=== PATIENT | male | born 1980 | race Caucasian/White ===

== ENCOUNTER 2023-04-29 21:15 | Inpatient (IN) ==
[2023-04-29] MEDS ORDERED: VANCOMYCIN CONSULT ACTIVE PRN (22:06)
[2023-04-29] MEDS ORDERED: VANCOMYCIN HCL 2,250 MG in SODIUM CHLORIDE 0.9% 500 ML IV ONE (22:06)
[2023-04-29] MEDS ORDERED: SODIUM CHLORIDE 0.9% 1,000 ML IV ONE (22:06)
[2023-04-29] MEDS ORDERED: CIPROFLOXACIN / D5W 400 MG/200 ML BAG IV STA (22:07)
[2023-04-29] MEDS ORDERED: metroNIDAZOLE 500 MG/100 ML BAG IV STA (22:07)
--- NOTE | 2023-04-29 23:27 | XRay Report ---
SINGLE VIEW CHEST CLINICAL HISTORY: Sepsis. Recent heart surgery. FINDINGS: An AP, portable, upright chest radiograph is obtained. No prior studies are available for c omparison at the time of dictation. The patient is status post midline sternotomy. The heart is enlar ged. The pulmonary vasculature is noncongested. There are right larger than left pleural effusions wi th dependent atelectasis. No pneumothorax is seen. The bony thorax is grossly intact. IMPRESSION: 1. Cardiomegaly without radiographic evidence of congestive failure. 2. Right larger than left pleural effusions with dependent atelectasis. ACT 112: Negative or not required by law. Electronically signed by: Ayan Saxena M.D. 04/29/2023 11:26 PM
[2023-04-29 23:40] LABS: Basophils # (auto) 0.01 K/uL (0.00-0.20); Basophils % (auto) 0.3 %; Eosinophils # (auto) 0.29 K/uL (0.00-0.50); Eosinophils % (auto) 8.5 %; Hematocrit (blood only) 52.7 % (42.0-52.0); Hemoglobin 17.1 g/dl (14.0-18.0); Immature Granulocytes # (auto) 0.03 K/uL (0.01-0.20); Immature Granulocytes % (auto) 0.9 %; Lymphocytes # (auto) 0.79 K/uL (1.20-3.40); Lymphocytes % (auto) 23.2 %; Mean Corpuscular Hemoglobin 28.9 pg (25.0-34.0); Mean Corpuscular Hgb Conc 32.4 g/dL (32.0-36.0); Mean Platelet Volume 9.6 fL (9.4-12.4); Monocytes # (auto) 0.24 K/uL (0.11-0.59); Monocytes % (auto) 7.1 %; Neutrophils # (auto) 2.04 K/uL (1.40-6.50); Platelet Count 156 K/uL (130-400); RDW Coefficient of Variation 16.5 % (11.5-14.5); RDW Standard Deviation 52.7 fL (36.4-46.3); Red Blood Count 5.92 M/uL (4.70-6.10)
[2023-04-30 00:06] LABS: Alanine Aminotransferase 46 U/L (7-52); Albumin Level 3.4 gm/dl (3.4-5.0); Alkaline Phosphatase 80 U/L (34-104); Anion Gap 7 (3-11); Aspartate Aminotransferase 36 U/L (13-39); BUN Creatinine Ratio 27.6 (10-20); Bilirubin,Total 0.4 mg/dl (0.2-1.0); Blood Urea Nitrogen 21 mg/dl (6-23); Calcium 8.8 mg/dl (8.6-10.3); Carbon Dioxide 26 mmol/L (21-32); Chloride 99 mmol/L (98-107); Creatine Kinase 14 U/L (30-223); Creatinine Clr Calc Pharmacy 167.5 ml/min; Est GFR (African American) 131.3 ml/min; Est GFR (Non-African American) 113.3 ml/min; Glucose 130 mg/dl (70-99(Fasting)); Magnesium 1.9 mg/dl (1.7-2.4); Potassium 3.8 mmol/L (3.5-5.1); Sodium 132 mmol/L (136-145); Total Protein 7.1 gm/dl (6.0-8.3)
--- NOTE | 2023-04-30 00:48 | Emergency Department Note ---
History of Present Illness General Chief complaint: Illness Stated complaint: Swelling under chin s/p surgery Time Seen by Provider: 04/29/23 21:23 History of Present Illness This 42-year-old male who was hospitalized for a few months for a peritonsillar abscess that spread into his neck tissue and then ended up being intubated and trached in [place] presents to the ER for increased swelling to the left side of his neck. Patient is unsure of his medical history as he states he was in a medically induced coma for 2 months at [facility]. Patient states the other day he had a CAT scan of the neck over at [place]. He states he is highly allergic anaphylactic to IV dye and is adamantly refusing IV dye tonight. He states he is also anaphylactic to penicillins. Patient states he feels like the left side of his neck is more swollen as and difficulty swallowing and feels somewhat short of breath. He is on a DOAC. Patient denies fevers, vomiting, diarrhea. He states his arms and legs have been weak since coming out of the coma. Past Med/Surg History Social History Smoking Status: Former smoker Feels Safe at Home: Yes Review of Systems A total of 10 systems reviewed and were otherwise negative Physical Exam Vital Signs Vital Signs - 24 hr 04/29/23 21:15 04/29/23 21:26 04/29/23 21:25 Temperature 36.4 C L Temperature Source Oral Pulse Rate 98 H 94 H Pulse Rate [Left Finger] Pulse Rate from SpO2 Sensor Pulse Rhythm Regular Regular Pulse Rhythm [Left Finger] Pulse Strength Normal Pulse Strength [Left Finger] Respiratory Rate 20 Respiratory Effort / Characteristics Non-Labored Spontaneous Respiratory Depth Normal Respiratory Pattern Regular Blood Pressure 98/68 L Blood Pressure [Left Arm] Blood Pressure Mean 78 Blood Pressure Mean [Left Arm] Blood Pressure Position Lying Pulse Oximetry 95 95 Oxygen Delivery Method Room Air Room Air Sepsis Recent Fever Within 48 Hours No Sepsis New/Unexplained Change in Mental Status N/A Sepsis Action Taken by Nursing No Action Required 04/29/23 23:06 04/30/23 01:28 04/29/23 21:26 Temperature Temperature Source Pulse Rate 90 94 H Pulse Rate [Left Finger] 92 H Pulse Rate from SpO2 Sensor 95 H Pulse Rhythm Pulse Rhythm [Left Finger] Regular Pulse Strength Pulse Strength [Left Finger] Normal Respiratory Rate 22 17 Respiratory Effort / Characteristics Non-Labored Spontaneous Respiratory Depth Normal Respiratory Pattern Regular Blood Pressure Blood Pressure [Left Arm] 115/71 Blood Pressure Mean Blood Pressure Mean [Left Arm] 85 Blood Pressure Position Pulse Oximetry 96 97 Oxygen Delivery Method Room Air Sepsis Recent Fever Within 48 Hours Sepsis New/Unexplained Change in Mental Status Sepsis Action Taken by Nursing 04/29/23 21:30 04/29/23 22:00 04/29/23 22:30 Temperature Temperature Source Pulse Rate 96 H 92 H 90 Pulse Rate [Left Finger] Pulse Rate from SpO2 Sensor 96 H Pulse Rhythm Pulse Rhythm [Left Finger] Pulse Strength Pulse Strength [Left Finger] Respiratory Rate 20 15 18 Respiratory Effort / Characteristics Respiratory Depth Respiratory Pattern Blood Pressure 118/61 Blood Pressure [Left Arm] Blood Pressure Mean 80 Blood Pressure Mean [Left Arm] Blood Pressure Position Pulse Oximetry 97 Oxygen Delivery Method Sepsis Recent Fever Within 48 Hours Sepsis New/Unexplained Change in Mental Status Sepsis Action Taken by Nursing 04/29/23 23:00 04/29/23 23:00 04/29/23 23:30 Temperature Temperature Source Pulse Rate 89 Pulse Rate [Left Finger] Pulse Rate from SpO2 Sensor Pulse Rhythm Pulse Rhythm [Left Finger] Pulse Strength Pulse Strength [Left Finger] Respiratory Rate 15 Respiratory Effort / Characteristics Respiratory Depth Respiratory Pattern Blood Pressure 115/71 107/66 Blood Pressure [Left Arm] Blood Pressure Mean 77 79 Blood Pressure Mean [Left Arm] Blood Pressure Position Pulse Oximetry Oxygen Delivery Method Sepsis Recent Fever Within 48 Hours Sepsis New/Unexplained Change in Mental Status Sepsis Action Taken by Nursing 04/29/23 23:30 04/30/23 00:25 04/30/23 00:30 Temperature Temperature Source Pulse Rate 85 88 87 Pulse Rate [Left Finger] Pulse Rate from SpO2 Sensor 88 87 Pulse Rhythm Pulse Rhythm [Left Finger] Pulse Strength Pulse Strength [Left Finger] Respiratory Rate 20 17 19 Respiratory Effort / Characteristics Respiratory Depth Respiratory Pattern Blood Pressure 93/62 L Blood Pressure [Left Arm] Blood Pressure Mean 72 Blood Pressure Mean [Left Arm] Blood Pressure Position Pulse Oximetry 97 96 Oxygen Delivery Method Sepsis Recent Fever Within 48 Hours Sepsis New/Unexplained Change in Mental Status Sepsis Action Taken by Nursing 04/30/23 01:00 04/30/23 01:00 Temperature Temperature Source Pulse Rate 88 Pulse Rate [Left Finger] Pulse Rate from SpO2 Sensor 88 Pulse Rhythm Pulse Rhythm [Left Finger] Pulse Strength Pulse Strength [Left Finger] Respiratory Rate 19 Respiratory Effort / Characteristics Respiratory Depth Respiratory Pattern Blood Pressure 105/63 Blood Pressure [Left Arm] Blood Pressure Mean 78 Blood Pressure Mean [Left Arm] Blood Pressure Position Pulse Oximetry 95 Oxygen Delivery Method Sepsis Recent Fever Within 48 Hours Sepsis New/Unexplained Change in Mental Status Sepsis Action Taken by Nursing VITALS: Vitals are noted on the nurse's note and reviewed by myself. Vital signs stable. GENERAL: Pleasant gentleman speaking in full sentences, in no acute distress, nondiaphoretic, well-developed well-nourished. SKIN: Midsternal wound that is packed with no signs of secondary infection, the skin was without rashes, erythema, edema, or bruising. There is no tenting of the skin. Capillary reflex less than 2 seconds. HEAD: Normocephalic atraumatic. EARS: External auditory canals clear, EYES: Pupils equal round and reactive to light and accommodation. Conjunctivae without injection, sclerae without icterus. Extraocular movements intact. NOSE: Patent, turbinates without inflammation or discharge. No sinus tenderness. MOUTH: Mucous membranes moist. Pharynx without erythema or exudate. Uvula midline. Airway patent. Tongue does not deviate. NECK: Supple without nuchal rigidity. Left lateral neck slightly edematous and tender to palpation with reactive lymphadenopathy. Cervical spine is nontender. No JVD. HEART: Regular rate and rhythm; chest with midsternal healing open wound that is packed. LUNGS: Clear to auscultation bilaterally without wheezes, rales or rhonchi. No retractions or accessory muscle use. ABDOMEN: Positive bowel sounds x 4. Normal tympanic percussion. Soft, nontender, without masses or organomegaly. Del Valle sign negative. No guarding or rebound tenderness. No CVA tenderness MUSCULOSKELETAL: No muscle atrophy, erythema, or edema noted. NEURO: Patient was alert and oriented to person place and time. No focal neurological deficits. Course Administered Medications Discontinued Medications Albuterol (Albut/Ipratrop 3mg/0.5mg Neb 3 Ml Vial) 3 ml NEB NOW STA; Protocol Stop: 04/30/23 02:30 Last Admin: 04/30/23 02:50 Dose: 3 ml Documented By: RYAN Sodium Chloride (Nss) 1,000 mls @ 999 mls/hr IV .Q1H1M ONE Stop: 04/29/23 23:06 Last Infusion: 04/30/23 01:00 Dose: 0 mls/hr Documented By: Admin: 04/29/23 23:10 Dose: 999 mls/hr Documented By: IGNACIO Ciprofloxacin (Cipro / D5w) 400 mg in 200 mls @ 100 mls/hr IV NOW STA; Protocol Stop: 04/30/23 00:06 Last Admin: 04/30/23 01:00 Dose: 100 mls/hr Documented By: RYAN Metronidazole (Flagyl) 500 mg in 100 mls @ 100 mls/hr IV NOW STA; Protocol Stop: 04/29/23 23:06 Last Infusion: 04/30/23 01:00 Dose: 0 mls/hr Documented By: Admin: 04/29/23 23:11 Dose: 100 mls/hr Documented By: IGNACIO Medical Decision Making Medical Records Attestation: I reviewed the patient's medical records. Home Medications Current Medication List: was personally reviewed by me Laboratory Data Attestation: I reviewed the patient's lab results. 04/29/23 22:59 04/29/23 22:52 Lab Results 04/29/23 04/29/23 04/29/23 Range/Units 22:52 22:52 22:52 WBC Cancelled RBC Cancelled Hgb Cancelled Hct Cancelled MCV Cancelled MCH Cancelled MCHC Cancelled RDW Std Deviation Cancelled RDW Coeff of Reed Cancelled Plt Count Cancelled MPV Cancelled Immature Gran % (Auto) Cancelled Neut % (Auto) Cancelled Lymph % (Auto) Cancelled [place] % (Auto) Cancelled Eos % (Auto) Cancelled Baso % (Auto) Cancelled Neut # (Auto) Cancelled Lymph # (Auto) Cancelled [place] # (Auto) Cancelled Eos # (Auto) Cancelled Baso # (Auto) Cancelled Immature Gran # (Auto) Cancelled Absolute Nucleated RBC Cancelled Nucleated RBC % (auto) Cancelled Neutrophils % (Manual) Cancelled Band Neutrophils % Cancelled Lymphocytes % (Manual) Cancelled Prolymphocyte % Cancelled Reactive Lymphs % (Man) Cancelled Monocytes % (Manual) Cancelled Eosinophils % (Manual) Cancelled Basophils % (Manual) Cancelled Metamyelocytes % (Man) Cancelled Myelocytes % (Man) Cancelled Promyelocytes % (Man) Cancelled Blast Cells % (Manual) Cancelled Plasma Cell % (Manual) Cancelled Other Cells % Cancelled Nucleated RBC % Cancelled Neutrophils # (Manual) Cancelled Band Neutrophils # Cancelled Total Absolute Neuts Cancelled Lymphocytes # (Manual) Cancelled Prolymphocyte # Cancelled Reactive Lymphs # Cancelled Total Abs Lymphocytes Cancelled Monocytes # (Manual) Cancelled Eosinophils # (Manual) Cancelled Basophils # (Manual) Cancelled Metamyelocytes # (Man) Cancelled Myelocytes # (Manual) Cancelled Promyelocytes # (Man) Cancelled Blast Cells # (Man) Cancelled Plasma Cell # (Manual) Cancelled Other Cells # Cancelled Nucleated RBCs # (Man) Cancelled Hypersegmented Neuts Cancelled Hyposegmented Neuts Cancelled Hypogranular Neuts Cancelled Large Granular Lymphs Cancelled # Lrg Granular Lymphs Cancelled Hairy Cells Cancelled Smudge Cells Cancelled Toxic Granulation Cancelled Toxic Vacuolation Cancelled Dohle Bodies Cancelled Francie Rods Cancelled Platelet Estimate Cancelled Hypogranular Platelets Cancelled Giant Platelets Cancelled Platelet Satelliting Cancelled RBC Morphology Cancelled Polychromasia Cancelled Hypochromasia Cancelled Poikilocytosis Cancelled Basophilic Stippling Cancelled Anisocytosis Cancelled Microcytosis Cancelled Macrocytosis Cancelled Spherocytes Cancelled Pappenheimer Bodies Cancelled Sickle Cells Cancelled Target Cells Cancelled Tear Drop Cells Cancelled Ovalocytes Cancelled Stomatocytes Cancelled [place] Bodies Cancelled Echinocytes Cancelled Acanthocytes (Spur) Cancelled Rouleaux Cancelled RBC Agglutinates Cancelled Schistocytes Cancelled [place] Cell Cancelled Sodium 132 L (136-145) mmol/L Potassium 3.8 (3.5-5.1) mmol/L Chloride 99 (98-107) mmol/L Carbon Dioxide 26 (21-32) mmol/L Anion Gap 7 (3-11) BUN 21 (6-23) mg/dl Creatinine 0.76 (0.6-1.4) mg/dl Est Cr Clr Drug Dosing 167.5 ml/min Est GFR ( Amer) 131.3 ml/min Est GFR (Non-Af Amer) 113.3 ml/min BUN/Creatinine Ratio 27.6 H (10-20) Glucose 130 H (70-99(Fasting)) mg/dl Lactate (0.4-2.0) mmol/L Calcium 8.8 (8.6-10.3) mg/dl Magnesium 1.9 (1.7-2.4) mg/dl Total Bilirubin 0.4 (0.2-1.0) mg/dl Direct Bilirubin TNP AST 36 (13-39) U/L ALT 46 (7-52) U/L Alkaline Phosphatase 80 (34-104) U/L Total Creatine Kinase 14 L (30-223) U/L Total Protein 7.1 (6.0-8.3) gm/dl Albumin 3.4 (3.4-5.0) gm/dl Procalcitonin 0.14 (0-0.5) ng/ml SARS-CoV-2, RNA, NAAT (NEGATIVE) Blood Parasites ID Cancelled 04/29/23 04/29/23 04/29/23 Range/Units 22:56 22:59 22:59 WBC 3.40 L RBC 5.92 Hgb 17.1 Hct 52.7 H MCV 89.0 MCH 28.9 MCHC 32.4 RDW Std Deviation 52.7 H RDW Coeff of Reed 16.5 H Plt Count 156 MPV 9.6 Immature Gran % (Auto) 0.9 Neut % (Auto) 60.0 Lymph % (Auto) 23.2 [place] % (Auto) 7.1 Eos % (Auto) 8.5 Baso % (Auto) 0.3 Neut # (Auto) 2.04 Lymph # (Auto) 0.79 L [place] # (Auto) 0.24 Eos # (Auto) 0.29 Baso # (Auto) 0.01 Immature Gran # (Auto) 0.03 Absolute Nucleated RBC Nucleated RBC % (auto) Neutrophils % (Manual) Band Neutrophils % Lymphocytes % (Manual) Prolymphocyte % Reactive Lymphs % (Man) Monocytes % (Manual) Eosinophils % (Manual) Basophils % (Manual) Metamyelocytes % (Man) Myelocytes % (Man) Promyelocytes % (Man) Blast Cells % (Manual) Plasma Cell % (Manual) Other Cells % Nucleated RBC % Neutrophils # (Manual) Band Neutrophils # Total Absolute Neuts Lymphocytes # (Manual) Prolymphocyte # Reactive Lymphs # Total Abs Lymphocytes Monocytes # (Manual) Eosinophils # (Manual) Basophils # (Manual) Metamyelocytes # (Man) Myelocytes # (Manual) Promyelocytes # (Man) Blast Cells # (Man) Plasma Cell # (Manual) Other Cells # Nucleated RBCs # (Man) Hypersegmented Neuts Hyposegmented Neuts Hypogranular Neuts Large Granular Lymphs # Lrg Granular Lymphs Hairy Cells Smudge Cells Toxic Granulation Toxic Vacuolation Dohle Bodies Francie Rods Platelet Estimate Hypogranular Platelets Giant Platelets Platelet Satelliting RBC Morphology Polychromasia Hypochromasia Poikilocytosis Basophilic Stippling Anisocytosis Microcytosis Macrocytosis Spherocytes Pappenheimer Bodies Sickle Cells Target Cells Tear Drop Cells Ovalocytes Stomatocytes [place] Bodies Echinocytes Acanthocytes (Spur) Rouleaux RBC Agglutinates Schistocytes Sezary Cell Sodium (136-145) mmol/L Potassium (3.5-5.1) mmol/L Chloride (98-107) mmol/L Carbon Dioxide (21-32) mmol/L Anion Gap (3-11) BUN (6-23) mg/dl Creatinine (0.6-1.4) mg/dl Est Cr Clr Drug Dosing ml/min Est GFR ( Amer) ml/min Est GFR (Non-Af Amer) ml/min BUN/Creatinine Ratio (10-20) Glucose (70-99(Fasting)) mg/dl Lactate 1.0 (0.4-2.0) mmol/L Calcium (8.6-10.3) mg/dl Magnesium (1.7-2.4) mg/dl Total Bilirubin (0.2-1.0) mg/dl Direct Bilirubin 0.1 AST (13-39) U/L ALT (7-52) U/L Alkaline Phosphatase (34-104) U/L Total Creatine Kinase (30-223) U/L Total Protein (6.0-8.3) gm/dl Albumin (3.4-5.0) gm/dl Procalcitonin (0-0.5) ng/ml SARS-CoV-2, RNA, NAAT (NEGATIVE) Blood Parasites ID 04/30/23 Range/Units 02:58 WBC RBC Hgb Hct MCV MCH MCHC RDW Std Deviation RDW Coeff of Reed Plt Count MPV Immature Gran % (Auto) Neut % (Auto) Lymph % (Auto) [place] % (Auto) Eos % (Auto) Baso % (Auto) Neut # (Auto) Lymph # (Auto) [place] # (Auto) Eos # (Auto) Baso # (Auto) Immature Gran # (Auto) Absolute Nucleated RBC Nucleated RBC % (auto) Neutrophils % (Manual) Band Neutrophils % Lymphocytes % (Manual) Prolymphocyte % Reactive Lymphs % (Man) Monocytes % (Manual) Eosinophils % (Manual) Basophils % (Manual) Metamyelocytes % (Man) Myelocytes % (Man) Promyelocytes % (Man) Blast Cells % (Manual) Plasma Cell % (Manual) Other Cells % Nucleated RBC % Neutrophils # (Manual) Band Neutrophils # Total Absolute Neuts Lymphocytes # (Manual) Prolymphocyte # Reactive Lymphs # Total Abs Lymphocytes Monocytes # (Manual) Eosinophils # (Manual) Basophils # (Manual) Metamyelocytes # (Man) Myelocytes # (Manual) Promyelocytes # (Man) Blast Cells # (Man) Plasma Cell # (Manual) Other Cells # Nucleated RBCs # (Man) Hypersegmented Neuts Hyposegmented Neuts Hypogranular Neuts Large Granular Lymphs # Lrg Granular Lymphs Hairy Cells Smudge Cells Toxic Granulation Toxic Vacuolation Dohle Bodies Francie Rods Platelet Estimate Hypogranular Platelets Giant Platelets Platelet Satelliting RBC Morphology Polychromasia Hypochromasia Poikilocytosis Basophilic Stippling Anisocytosis Microcytosis Macrocytosis Spherocytes Pappenheimer Bodies Sickle Cells Target Cells Tear Drop Cells Ovalocytes Stomatocytes [place] Bodies Echinocytes Acanthocytes (Spur) Rouleaux RBC Agglutinates Schistocytes Sezary Cell Sodium (136-145) mmol/L Potassium (3.5-5.1) mmol/L Chloride (98-107) mmol/L Carbon Dioxide (21-32) mmol/L Anion Gap (3-11) BUN (6-23) mg/dl Creatinine (0.6-1.4) mg/dl Est Cr Clr Drug Dosing ml/min Est GFR ( Amer) ml/min Est GFR (Non-Af Amer) ml/min BUN/Creatinine Ratio (10-20) Glucose (70-99(Fasting)) mg/dl Lactate (0.4-2.0) mmol/L Calcium (8.6-10.3) mg/dl Magnesium (1.7-2.4) mg/dl Total Bilirubin (0.2-1.0) mg/dl Direct Bilirubin AST (13-39) U/L ALT (7-52) U/L Alkaline Phosphatase (34-104) U/L Total Creatine Kinase (30-223) U/L Total Protein (6.0-8.3) gm/dl Albumin (3.4-5.0) gm/dl Procalcitonin (0-0.5) ng/ml SARS-CoV-2, RNA, NAAT NEGATIVE (NEGATIVE) Blood Parasites ID Imaging Data Attestation: I personally reviewed and interpreted this imaging study as follows: Radiologist's Impression: Cervical Spine CT 04/29/23 21:26 Exam(s): CT C SPINE EXAM: CT Cervical Spine Without Intravenous Contrast CLINICAL HISTORY: Reason for exam: Left neck swelling, hx mass and trac.. TECHNIQUE: Axial computed tomography images of the cervical spine without intravenous contrast. CTDI is 28.14 mGy and DLP is 3137.05 mGy-cm. Automated exposure control was utilized for the study. A dose lowering technique was utilized adhering to the principles of ALARA. COMPARISON: No relevant prior studies available. FINDINGS: Vertebrae: Slight straightening of the normal cervical curvature may be due to positioning or spasm. No acute fracture or subluxation is seen. Soft tissues: Chronic appearing calcification along the posterior soft tissues. Mastoid air cells: Partial opacification of the mastoid air cells bilaterally suggesting prior mastoiditis. Pleural space: Partial visualization of small right pleural effusion. DISCS/SPINAL CANAL/NEURAL FORAMINA: C2-C3: Unremarkable. No significant disc disease. No stenosis. C3-C4: Unremarkable. No significant disc disease. No stenosis. C4-C5: Unremarkable. No significant disc disease. No stenosis. C5-C6: Mild degenerative disc disease. No stenosis. C6-C7: Mild degenerative disc disease. No stenosis. C7-T1: Unremarkable. No significant disc disease. No stenosis. IMPRESSION: Slight straightening of the normal cervical curvature may be due to positioning or spasm. No acute fracture or subluxation is seen. Mild degenerative changes in the mid cervical spine. No spinal stenosis is seen. Electronically signed by: Luis Lewis MD 04/30/23 02:12 AM Chest X-Ray 04/29/23 21:26 SINGLE VIEW CHEST CLINICAL HISTORY: Sepsis. Recent heart surgery. FINDINGS: An AP, portable, upright chest radiograph is obtained. No prior studies are available for comparison at the time of dictation. The patient is status post midline sternotomy. The heart is enlarged. The pulmonary vasculature is noncongested. There are right larger than left pleural effusions with dependent atelectasis. No pneumothorax is seen. The bony thorax is grossly intact. IMPRESSION: 1. Cardiomegaly without radiographic evidence of congestive failure. 2. Right larger than left pleural effusions with dependent atelectasis. ACT 112: Negative or not required by law. Electronically signed by: Ayan Saxena M.D. 04/29/2023 11:[address] 04/29/23 21:27 Exam(s): CT CHEST Without Contrast EXAM: CT Chest Without Intravenous Contrast CLINICAL HISTORY: Reason for exam: neck/chest mass hx. TECHNIQUE: Axial computed tomography images of the chest without intravenous contrast. CTDI is 27.46 mGy and DLP is 3137.05 mGy-cm. Automated exposure control was utilized for the study. A dose lowering technique was utilized adhering to the principles of ALARA. COMPARISON: No relevant prior studies available. FINDINGS: Trachea: Previous tracheotomy. Lungs: There are mild emphysematous changes in the lungs bilaterally, greatest in the upper lobes. Small areas of linear scarring or subsegmental atelectasis are present inferiorly. Pleural space: There are loculated appearing bilateral pleural fluid collections measuring 4.5 cm thick on the right and 3.7 cm on the left with adjacent atelectasis. No pneumothorax. Heart: Unremarkable. No cardiomegaly. No significant pericardial effusion. No significant coronary artery calcifications. Bones/joints: Previous sternotomy. Mild degenerative changes in the spine. No acute fracture or subluxation is seen. Soft tissues: Unremarkable. Vasculature: The thoracic aorta is nondilated. This is a noncontrast study. Lymph nodes: Unremarkable. No enlarged lymph nodes. IMPRESSION: There are loculated appearing bilateral pleural fluid collections measuring 4.5 cm thick on the right and 3.7 cm on the left with adjacent atelectasis. Electronically signed by: Luis Lewis MD 04/30/23 02:14 AM Abdomen/Pelvis CT 04/29/23 22:06 Exam(s): CT ABDOMEN + PELVIS Without Contrast EXAM: CT Abdomen and Pelvis Without Intravenous Contrast CLINICAL HISTORY: Reason for exam: pain. TECHNIQUE: Axial computed tomography images of the abdomen and pelvis without intravenous contrast. CTDI is 28.14 mGy and DLP is 3137.05 mGy-cm. Automated exposure control was utilized for the study. A dose lowering technique was utilized adhering to the principles of ALARA. COMPARISON: No relevant prior studies available. FINDINGS: Lung bases: Unremarkable. No mass. No consolidation. ABDOMEN: Liver: The liver is mildly enlarged measuring 20 cm craniocaudad. No focal liver lesion is seen. Gallbladder and bile ducts: Unremarkable. No calcified stones. No ductal dilation. Pancreas: Unremarkable. No ductal dilation. Spleen: Unremarkable. No splenomegaly. Adrenals: Unremarkable. No mass. Kidneys and ureters: The kidneys are unremarkable. No hydronephrosis or ureterolithiasis is seen. Stomach and bowel: Unremarkable. No obstruction. No mucosal thickening. PELVIS: Appendix: The appendix is normal. Bowel loops are nondilated. No acute inflammatory changes are seen involving the bowel. Bladder: Unremarkable. No stones. Reproductive: Unremarkable as visualized. ABDOMEN and PELVIS: Intraperitoneal space: Unremarkable. No free air. No significant fluid collection. Bones/joints: Mild degenerative changes in the spine. No acute fracture or subluxation is seen. Soft tissues: Unremarkable. Vasculature: Unremarkable. No abdominal aortic aneurysm. Lymph nodes: Unremarkable. No enlarged lymph nodes. IMPRESSION: 1. The kidneys are unremarkable. No hydronephrosis or ureterolithiasis is seen. 2. The appendix is normal. Bowel loops are nondilated. No acute inflammatory changes are seen involving the bowel. Electronically signed by: Luis Lewis MD 04/30/23 02:15 AM MDM Narrative Prior records/ancillary studies reviewed and summarized above. Nursing notes reviewed. Additional history obtained from nursing. The patient's history was concerning for increasing neck swelling with dysphagia with a history of a neck abscess who needed to be trached. Differential diagnosis: Etiologies such as neck infection, metabolic, infection, hypo/hyperglycemia, electrolyte abnormalities, cardiac sources, intracerebral event, toxicologic, neurologic, as well as others were entertained. Physical examination: As above. ER treatment provided: IV Lock An order was placed for continuous cardiac monitoring. The monitor shows a rate of 60-100 with a sinus rhythm per my interpretation. Vancomycin, Cipro and Flagyl were ordered On reassessment the patient felt better. Diagnostics interpretation by me: ECG: Ordered for weakness EKG: Normal sinus, normal intervals, T wave inversions in the lateral leads, anterior and lateral leads, rate of 92. No old EKG. Impression normal sinus rhythm with T wave inversions in the anterolateral leads independently interpreted by myself I think arrhythmia is unlikely. EKG shows normal sinus rhythm with no interval abnormalities such as QT prolongation or WPW. There are no findings to suggest Brugada syndrome. Cardiac monitoring in the emergency department reveals no tachycardic or bradycardic dysrhythmia. Hypertrophic cardiomyopathy was considered but there are no clear historical elements pointing toward this. EKG is not suggestive. The QRS voltage is not extremely large and there are no suggestive Q waves. The labs Independently Interpreted by myself revealed mild hyperglycemia that DKA. Negative lactic. Blood cultures pending Imaging studies: Chest x-ray concerning for pleural effusions per my independent or potation CTs of the neck chest abdomen pelvis read by radiology and reviewed as above. Consultation: A consultation was placed with the hospitalist. The case was discussed and diagnostics were reviewed. The patient was evaluated in the ER for further treatment. Exam and history seem consistent with increased neck swelling concerning for cellulitis. Patient also has some pleural effusions. I did request the records from [place] but they were not sent. Patient was not well versed with his medical history as he was in a coma. He was not sure what happened with all his medical procedures. Labs and diagnostics are independent turbid by myself. Radiology read the CAT scans. Medicine was consulted and the case discussed. Patient be admitted to the medical service. Patient was admitted started antibiotics upon initial evaluation given his recent medical history. CAT scan showed neuro large abscess. He did have pleural effusions. No worrisome leukocytosis. Negative infection markers. By the evaluation outlined above emergent etiologies such as electrolyte abnormalities, cardiac sources, intrac erebral event, toxologic, neurologic, abnormalities blood glucose, metabolic, as well as others were deemed relatively unlikely. Dry scans were ordered as patient states he was anaphylactic to IV contrast. The pt informed about the findings as listed above. All questions were answered and pleased with the treatment. The chart was completed utilizing [employer] voice recognition software. Grammatical errors, random word insertions, pronoun errors, and incomplete sentences are an occassional consequence of this system due to software limitations, ambient noise, and hardware issues. Any formal questions or concerns about the content, text, or information contained within the body of this dictation should be directly addressed to the physician promotions assistant for clarification. Impression & Plan Cellulitis of neck, Pleural effusion on left, Pleural effusion on right Discharge Plan Visit Data Chief Complaint: Illness Stated Complaint: Swelling under chin s/p surgery ED Provider: Michael Mcgowan ED Midlevel Provider: Adelaide Arias Discharge Problem: Cellulitis of neck, Pleural effusion on left, Pleural effusion on right Patient Disposition: Admitted As Inpatient Condition: Good Forms Stand Alone Forms: [facility] Referrals Referrals: PCP,NO [Primary Care Provider] -
--- NOTE | 2023-04-30 02:13 | CT Scan Report ---
Exam(s): CT C SPINE EXAM: CT Cervical Spine Without Intravenous Contrast CLINICAL HISTORY: Reason for exam: Left neck swelling, hx mass and trac.. TECHNIQUE: Axial computed tomography images of the cervical spine without intravenous contrast. CTDI is 28.14 mGy and DLP is 3137.05 mGy-cm. Automated exposure control was utilized for the study. A dose lowering technique was utilized adhering to the principles of ALARA. COMPARISON: No relevant prior studies available. FINDINGS: Vertebrae: Slight straightening of the normal cervical curvature may be due to positioning or spasm. No acute fracture or subluxation is seen. Soft tissues: Chronic appearing calcification along the posterior soft tissues. Mastoid air cells: Partial opacification of the mastoid air cells bilaterally suggesting prior mastoiditis. Pleural space: Partial visualization of small right pleural effusion. DISCS/SPINAL CANAL/NEURAL FORAMINA: C2-C3: Unremarkable. No significant disc disease. No stenosis. C3-C4: Unremarkable. No significant disc disease. No stenosis. C4-C5: Unremarkable. No significant disc disease. No stenosis. C5-C6: Mild degenerative disc disease. No stenosis. C6-C7: Mild degenerative disc disease. No stenosis. C7-T1: Unremarkable. No significant disc disease. No stenosis. IMPRESSION: Slight straightening of the normal cervical curvature may be due to positioning or spasm. No acute fracture or subluxation is seen. Mild degenerative changes in the mid cervical spine. No spinal stenosis is seen. Electronically signed by: Luis Lewis MD 04/30/23 02:12 AM
--- NOTE | 2023-04-30 02:15 | CT Scan Report ---
Exam(s): CT CHEST Without Contrast EXAM: CT Chest Without Intravenous Contrast CLINICAL HISTORY: Reason for exam: neck/chest mass hx. TECHNIQUE: Axial computed tomography images of the chest without intravenous contrast. CTDI is 27.46 mGy and DLP is 3137.05 mGy-cm. Automated exposure control was utilized for the study. A dose lowering technique was utilized adhering to the principles of ALARA. COMPARISON: No relevant prior studies available. FINDINGS: Trachea: Previous tracheotomy. Lungs: There are mild emphysematous changes in the lungs bilaterally, greatest in the upper lobes. Small areas of linear scarring or subsegmental atelectasis are present inferiorly. Pleural space: There are loculated appearing bilateral pleural fluid collections measuring 4.5 cm thick on the right and 3.7 cm on the left with adjacent atelectasis. No pneumothorax. Heart: Unremarkable. No cardiomegaly. No significant pericardial effusion. No significant coronary artery calcifications. Bones/joints: Previous sternotomy. Mild degenerative changes in the spine. No acute fracture or subluxation is seen. Soft tissues: Unremarkable. Vasculature: The thoracic aorta is nondilated. This is a noncontrast study. Lymph nodes: Unremarkable. No enlarged lymph nodes. IMPRESSION: There are loculated appearing bilateral pleural fluid collections measuring 4.5 cm thick on the right and 3.7 cm on the left with adjacent atelectasis. Electronically signed by: Luis Lewis MD 04/30/23 02:14 AM
--- NOTE | 2023-04-30 02:16 | CT Scan Report ---
Exam(s): CT ABDOMEN + PELVIS Without Contrast EXAM: CT Abdomen and Pelvis Without Intravenous Contrast CLINICAL HISTORY: Reason for exam: pain. TECHNIQUE: Axial computed tomography images of the abdomen and pelvis without intravenous contrast. CTDI is 28.14 mGy and DLP is 3137.05 mGy-cm. Automated exposure control was utilized for the study. A dose lowering technique was utilized adhering to the principles of ALARA. COMPARISON: No relevant prior studies available. FINDINGS: Lung bases: Unremarkable. No mass. No consolidation. ABDOMEN: Liver: The liver is mildly enlarged measuring 20 cm craniocaudad. No focal liver lesion is seen. Gallbladder and bile ducts: Unremarkable. No calcified stones. No ductal dilation. Pancreas: Unremarkable. No ductal dilation. Spleen: Unremarkable. No splenomegaly. Adrenals: Unremarkable. No mass. Kidneys and ureters: The kidneys are unremarkable. No hydronephrosis or ureterolithiasis is seen. Stomach and bowel: Unremarkable. No obstruction. No mucosal thickening. PELVIS: Appendix: The appendix is normal. Bowel loops are nondilated. No acute inflammatory changes are seen involving the bowel. Bladder: Unremarkable. No stones. Reproductive: Unremarkable as visualized. ABDOMEN and PELVIS: Intraperitoneal space: Unremarkable. No free air. No significant fluid collection. Bones/joints: Mild degenerative changes in the spine. No acute fracture or subluxation is seen. Soft tissues: Unremarkable. Vasculature: Unremarkable. No abdominal aortic aneurysm. Lymph nodes: Unremarkable. No enlarged lymph nodes. IMPRESSION: 1. The kidneys are unremarkable. No hydronephrosis or ureterolithiasis is seen. 2. The appendix is normal. Bowel loops are nondilated. No acute inflammatory changes are seen involving the bowel. Electronically signed by: Luis Lewis MD 04/30/23 02:15 AM
[2023-04-30] MEDS ORDERED: ALBUT/IPRATROP 3MG/0.5MG NEB 3 ML VIAL NEB STA (02:29)
[2023-04-30] MEDS ORDERED: diphenhydrAMINE 50 MG/ML VIAL ONE (03:48)
--- NOTE | 2023-04-30 03:54 | History & Physical Report ---
Date of Service April 30, 2023 Assessment & Plan (1) Cellulitis of neck: Plan: Recurrent infection hx left peritonsillar abscess with secondary neck abscess and pleural fluid collections status post drainage Extended antibiotic course at LTAC facility possibly terminated prematurely without clearance from patient's [facility] specialist no sepsis for now HTN, BP on the lower side possible CHF as per patient, patient on the dry side PAF, patient NSR, patient not on anticoagulation anxiety/mood disorder, stable history of prolonged intubation GERD, stable on H2 beverly Hyperglycemia rule out DM past tobacco abuse GMF Vancomycin, Ertapenem for now to target ENT and pulmonary sources ENT consult Re: Recurrent left neck swelling Crucial to obtain records from recent confinement at [facility] and [facility] in [place] Will request AM provider to contact patient's [facility] specialist in a.m. for additional information/guidance regarding antibiotic regimen. (Dr. Lr, contact number [phone]). May benefit from inpatient Pulmonology evaluation for pleural fluid collections if recommendations/instructions not found from [facility] or [facility] discharge summaries. IVF, hold home diuretic and calcium channel beverly for now given borderline BP. Obtain history of regarding patient's cardiac issues from records once available as patient unable to give specific details. Check hemoglobin A1c DVT prophylaxis. Lovenox subcu Full code Patient mother requesting updates providers. Ms. Deb Cerda, contact #[phone]. Text document was generated using [employer] voice recognition software. It may contain grammatical or spelling errors. Kindly contact undersigned for clarification of any documentation item in question. History of Present Illness Chief Complaint: Left neck swelling Primary Care Provider: NO PCP History obtained from patient, family, and records. Medical history significant for HTN, possible CHF as per patient, PAF, anxiety/mood disorder, left peritonsillar abscess with secondary neck abscess and pleural fluid collections (Beta-hemolytic streptococcus, Group G) status post drainage, history of prolonged intubation, GERD, past tobacco abuse. Patient admitted at [facility] from March 03 to 2022 after transfer from [facility] for strep throat, left-sided large multilocular peritonsillar abscess. Subsequent direct laryngoscopy and incision and drainage of left peritonsillar abscess by ENT specialist at [facility]. Unable to extubate patient postop due to significant airway swelling. Subsequent swelling on the left side of the face and submental area noted. Respiratory cultures grew beta-hemolytic strep, group G. Intraoperative cultures gram-negative rods, gram-positive cocci in chains and few gram-positive rods. Soft tissue neck CT showed pansinusitis and marked progression of inflammatory infectious fluid stranding and induration of the left neck extending from the palatine tonsil to involve the floor of the mouth, left neck and left muscles of mastication with subcutaneous stranding extending into the anterior upper chest and left shoulder. ENT surgeon recommended transfer to tertiary care center need for extensive surgery and multidisciplinary approach as per documentation. Patient transferred by helicopter to [facility]. Patient confined at [facility] ([facility]) for about a month as per patient's family. Multiple procedures draining neck infection and secondary lung infection as per patient's mother. Prolonged intubation (about 40 days from time of surgery at [facility]) requiring tracheostomy for ventilation dependent respiratory failure. Patient does not recall events from surgery at [facility] and [facility] confinement. Patient supposed to have follow-up appointments w [facility] specialists as per mother. Patient discharged to [facility] in [place], [place] 2 weeks ago on extended antibiotic regimen as per [facility] specialist recommendations. Patient eventually weaned off ventilator and tube feeds at LTAC. Oral feeding started at LTAC as per patient last week. Patient antibiotics eventually discontinued at LTAC facility due to concern for hypersensitivity reaction. Patient mother does not think [facility] specialist consulted about decision to stop antibiotics by LTAC. Last antibiotic dose was a few days ago prior to transfer to local [facility] rehab facility. CT of the neck done prior to discontinuing antibiotics as per patient. Patient transferred to [facility] rehab facility yesterday. Last night, patient noted left-sided neck swelling with some discomfort similar to episode from a few months ago. No chest pain, no SOB, no cough symptoms. No sore throat symptoms. No tooth ache. No fever, no chills. Patient brought to ER for evaluation. Vancomycin, ciprofloxacin and Flagyl administered at the ER. 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 Allergies Allergy/AdvReac Type Severity Reaction Status Date / Time shellfish derived Allergy Severe Anaphylaxis Verified 04/30/23 03:59 penicillin G Allergy Unknown Unknown Verified 04/30/23 07:19 amoxicillin Allergy Unknown Verified 04/30/23 07:19 pecan nut Allergy Unknown Verified 04/30/23 07:19 peanut AdvReac Unknown Unknown Verified 04/30/23 07:19 Home Medications Medication Instructions Recorded Confirmed Type Lovenox 40 mg SC BID 04/30/23 04/30/23 History acetaminophen 650 mg tablet 650 mg PO Q4H PRN Pain 04/30/23 04/30/23 History amiodarone 200 mg PO DAILY 04/30/23 04/30/23 History aripiprazole 5 mg tablet (Abilify) 5 mg PO 2XD 04/30/23 04/30/23 History bisacodyl 10 mg rectal suppository 10 mg NM DAILY PRN Constipation 04/30/23 04/30/23 History bumetanide 1 mg PO BID 04/30/23 04/30/23 History dextrose 40 % oral gel 15 g PO DIRECTED PRN 04/30/23 04/30/23 History Hypoglycemia dextrose 50 % in water (D50W) 12.5 g IV DIRECTED PRN 04/30/23 04/30/23 History Hypoglycemia dextrose 50 % in water (D50W) 25 g IV DIRECTED PRN 04/30/23 04/30/23 History Hypoglycemia diltiazem HCl 90 mg PO QID 04/30/23 04/30/23 History docusate sodium 100 mg capsule 100 mg PO BID 04/30/23 04/30/23 History escitalopram oxalate 10 mg PO DAILY 04/30/23 04/30/23 History famotidine 20 mg tablet 20 mg PO BID 04/30/23 04/30/23 History gabapentin 100 mg capsule 100 mg PO BID 04/30/23 04/30/23 History magnesium hydroxide 2,400 mg/10 mL 2,400 mg PO DIRECTED PRN 04/30/23 04/30/23 History oral suspension (Milk Of Magnesia Constipation Concentrated) polyethylene glycol 3350 17 gram 17 g PO DAILY PRN Constipation 04/30/23 04/30/23 History oral powder packet potassium chloride 20 meq PO TID 04/30/23 04/30/23 History sennosides 8.6 mg tablet (Senokot) 8.6 mg PO DAILY PRN Constipation 04/30/23 04/30/23 History sodium phosphates 19 gram-7 118 ml NM DAILY PRN Constipation 04/30/23 04/30/23 History gram/118 mL enema (Fleet Enema) tamsulosin 0.4 mg PO DAILY 04/30/23 04/30/23 History Past Med/Surg History Medical History Atrial fibrillation Tachycardia Social History Smoking Status: Former smoker Second Hand Exposure: No; Do You Dip or Chew Tobacco: No; Tobacco Cessation Education Requested by Patient: No Hx Alcohol Use: No Hx Substance Use: No Preferred Language: Y[place] [employer] Required: No Beliefs That Will Affect Care: None Current Living Situation: Rehab Current Living Situation Comment: [facility] for a few days Other Information That Helps Us Care for You: No Feels Safe at Home: Yes Safety Concerns: Feels Safe At This Time Assistive Devices: Walker Review of Systems Review of Systems: As per HPI, all other systems reviewed and negative Physical Exam Physical Exam: GENERAL: Slightly uncomfortable, slightly anxious, obese, pleasant no respiratory distress SKIN: Normal color, warm HEENT: [place] palpebral conjunctivae, no ptosis, dry buccal mucosa, no trismus NECK : Supple, left neck swelling with minimal tenderness CHEST : Decreased breath sounds, no tenderness HEART : RRR, no obvious murmurs ABDOMEN: Some distention, nontender EXTREMITIES : No LE swelling/tenderness, no other conspicuous deformities noted NEUROLOGIC : Coherent, no facial asymmetry, no other gross focality Results & Data Results & Data Vital Signs (Past 12 Hours) Vital Signs Temp Pulse Pulse Resp BP BP Pulse Ox 04/30/23 03:00 97 H 20 125/71 96 04/30/23 01:00 88 19 95 04/30/23 01:00 105/63 04/30/23 00:30 87 19 93/62 L 96 04/30/23 00:25 88 17 97 04/29/23 23:30 85 20 04/29/23 23:30 107/66 04/29/23 23:00 89 15 04/29/23 23:00 115/71 04/29/23 22:30 90 18 04/29/23 22:00 92 H 15 04/29/23 21:30 96 H 20 118/61 97 04/29/23 21:26 94 H 17 97 04/30/23 01:28 90 04/29/23 23:06 92 H 22 115/71 96 04/29/23 21:25 94 H 04/29/23 21:26 95 04/29/23 21:15 36.4 C L 98 H 20 98/68 L 95 O2 Del Method 04/30/23 03:00 Room Air 04/30/23 01:00 04/30/23 01:00 04/30/23 00:30 04/30/23 00:25 04/29/23 23:30 04/29/23 23:30 04/29/23 23:00 04/29/23 23:00 04/29/23 22:30 04/29/23 22:00 04/29/23 21:30 04/29/23 21:26 04/30/23 01:28 04/29/23 23:06 Room Air 04/29/23 21:25 04/29/23 21:26 Room Air 04/29/23 21:15 Room Air Laboratory Results Laboratory Results WBC 3.40 K/ul (4.8-10.8) L 04/29/23 22:59 RBC 5.92 M/uL (4.70-6.10) 04/29/23 22:59 Hgb 17.1 g/dl (14.0-18.0) 04/29/23 22:59 Hct 52.7 % (42.0-52.0) H 04/29/23 22:59 MCV 89.0 fL (80.0-100.0) 04/29/23 22:59 MCH 28.9 pg (25.0-34.0) 04/29/23 22:59 MCHC 32.4 g/dL (32.0-36.0) 04/29/23 22:59 RDW Std Deviation 52.7 fL (36.4-46.3) H 04/29/23 22:59 RDW Coeff of Reed 16.5 % (11.5-14.5) H 04/29/23 22:59 Plt Count 156 K/uL (130-400) 04/29/23 22:59 MPV 9.6 fL (9.4-12.4) 04/29/23 22:59 Immature Gran % (Auto) 0.9 % 04/29/23 22:59 Neut % (Auto) 60.0 % 04/29/23 22:59 Lymph % (Auto) 23.2 % 04/29/23 22:59 Lamar % (Auto) 7.1 % 04/29/23 22:59 Eos % (Auto) 8.5 % 04/29/23 22:59 Baso % (Auto) 0.3 % 04/29/23 22:59 Neut # (Auto) 2.04 K/uL (1.40-6.50) 04/29/23 22:59 Lymph # (Auto) 0.79 K/uL (1.20-3.40) L 04/29/23 22:59 Lamar # (Auto) 0.24 K/uL (0.11-0.59) 04/29/23 22:59 Eos # (Auto) 0.29 K/uL (0.00-0.50) 04/29/23 22:59 Baso # (Auto) 0.01 K/uL (0.00-0.20) 04/29/23 22:59 Immature Gran # (Auto) 0.03 K/uL (0.01-0.20) 04/29/23 22:59 Absolute Nucleated RBC Cancelled 04/29/23 22:52 Nucleated RBC % (auto) Cancelled 04/29/23 22:52 Neutrophils % (Manual) Cancelled 04/29/23 22:52 Band Neutrophils % Cancelled 04/29/23 22:52 Lymphocytes % (Manual) Cancelled 04/29/23 22:52 Prolymphocyte % Cancelled 04/29/23 22:52 Reactive Lymphs % (Man) Cancelled 04/29/23 22:52 Monocytes % (Manual) Cancelled 04/29/23 22:52 Eosinophils % (Manual) Cancelled 04/29/23 22:52 Basophils % (Manual) Cancelled 04/29/23 22:52 Metamyelocytes % (Man) Cancelled 04/29/23 22:52 Myelocytes % (Man) Cancelled 04/29/23 22:52 Promyelocytes % (Man) Cancelled 04/29/23 22:52 Blast Cells % (Manual) Cancelled 04/29/23 22:52 Plasma Cell % (Manual) Cancelled 04/29/23 22:52 Other Cells % Cancelled 04/29/23 22:52 Nucleated RBC % Cancelled 04/29/23 22:52 Neutrophils # (Manual) Cancelled 04/29/23 22:52 Band Neutrophils # Cancelled 04/29/23 22:52 Total Absolute Neuts Cancelled 04/29/23 22:52 Lymphocytes # (Manual) Cancelled 04/29/23 22:52 Prolymphocyte # Cancelled 04/29/23 22:52 Reactive Lymphs # Cancelled 04/29/23 22:52 Total Abs Lymphocytes Cancelled 04/29/23 22:52 Monocytes # (Manual) Cancelled 04/29/23 22:52 Eosinophils # (Manual) Cancelled 04/29/23 22:52 Basophils # (Manual) Cancelled 04/29/23 22:52 Metamyelocytes # (Man) Cancelled 04/29/23 22:52 Myelocytes # (Manual) Cancelled 04/29/23 22:52 Promyelocytes # (Man) Cancelled 04/29/23 22:52 Blast Cells # (Man) Cancelled 04/29/23 22:52 Plasma Cell # (Manual) Cancelled 04/29/23 22:52 Other Cells # Cancelled 04/29/23 22:52 Nucleated RBCs # (Man) Cancelled 04/29/23 22:52 Hypersegmented Neuts Cancelled 04/29/23 22:52 Hyposegmented Neuts Cancelled 04/29/23 22:52 Hypogranular Neuts Cancelled 04/29/23 22:52 Large Granular Lymphs Cancelled 04/29/23 22:52 # Lrg Granular Lymphs Cancelled 04/29/23 22:52 Hairy Cells Cancelled 04/29/23 22:52 Smudge Cells Cancelled 04/29/23 22:52 Toxic Granulation Cancelled 04/29/23 22:52 Toxic Vacuolation Cancelled 04/29/23 22:52 Dohle Bodies Cancelled 04/29/23 22:52 Francie Rods Cancelled 04/29/23 22:52 Platelet Estimate Cancelled 04/29/23 22:52 Hypogranular Platelets Cancelled 04/29/23 22:52 Giant Platelets Cancelled 04/29/23 22:52 Platelet Satelliting Cancelled 04/29/23 22:52 RBC Morphology Cancelled 04/29/23 22:52 Polychromasia Cancelled 04/29/23 22:52 Hypochromasia Cancelled 04/29/23 22:52 Poikilocytosis Cancelled 04/29/23 22:52 Basophilic Stippling Cancelled 04/29/23 22:52 Anisocytosis Cancelled 04/29/23 22:52 Microcytosis Cancelled 04/29/23 22:52 Macrocytosis Cancelled 04/29/23 22:52 Spherocytes Cancelled 04/29/23 22:52 Pappenheimer Bodies Cancelled 04/29/23 22:52 Sickle Cells Cancelled 04/29/23 22:52 Target Cells Cancelled 04/29/23 22:52 Tear Drop Cells Cancelled 04/29/23 22:52 Ovalocytes Cancelled 04/29/23 22:52 Stomatocytes Cancelled 04/29/23 22:52 [place] Bodies Cancelled 04/29/23 22:52 Echinocytes Cancelled 04/29/23 22:52 Acanthocytes (Spur) Cancelled 04/29/23 22:52 Rouleaux Cancelled 04/29/23 22:52 RBC Agglutinates Cancelled 04/29/23 22:52 Schistocytes Cancelled 04/29/23 22:52 Sezary Cell Cancelled 04/29/23 22:52 Sodium 132 mmol/L (136-145) L 04/29/23 22:52 Potassium 3.8 mmol/L (3.5-5.1) 04/29/23 22:52 Chloride 99 mmol/L (98-107) 04/29/23 22:52 Carbon Dioxide 26 mmol/L (21-32) 04/29/23 22:52 Anion Gap 7 (3-11) 04/29/23 22:52 BUN 21 mg/dl (6-23) 04/29/23 22:52 Creatinine 0.76 mg/dl (0.6-1.4) 04/29/23 22:52 Est Cr Clr Drug Dosing 167.5 ml/min 04/29/23 22:52 Est GFR ( Amer) 131.3 ml/min 04/29/23 22:52 Est GFR (Non-Af Amer) 113.3 ml/min 04/29/23 22:52 BUN/Creatinine Ratio 27.6 (10-20) H 04/29/23 22:52 Glucose 130 mg/dl (70-99(Fasting)) H 04/29/23 22:52 Lactate 1.0 mmol/L (0.4-2.0) 04/29/23 22:56 Calcium 8.8 mg/dl (8.6-10.3) 04/29/23 22:52 Magnesium 1.9 mg/dl (1.7-2.4) 04/29/23 22:52 Total Bilirubin 0.4 mg/dl (0.2-1.0) 04/29/23 22:52 Direct Bilirubin 0.1 mg/dl (0-0.2) 04/29/23 22:59 AST 36 U/L (13-39) 04/29/23 22:52 ALT 46 U/L (7-52) 04/29/23 22:52 Alkaline Phosphatase 80 U/L (34-104) 04/29/23 22:52 Total Creatine Kinase 14 U/L (30-223) L 04/29/23 22:52 Total Protein 7.1 gm/dl (6.0-8.3) 04/29/23 22:52 Albumin 3.4 gm/dl (3.4-5.0) 04/29/23 22:52 Procalcitonin 0.14 ng/ml (0-0.5) 04/29/23 22:52 SARS-CoV-2, RNA, NAAT NEGATIVE (NEGATIVE) 04/30/23 02:58 Blood Parasites ID Cancelled 04/29/23 22:[address] 04/29/23 21:26 Exam(s): CT C SPINE EXAM: CT Cervical Spine Without Intravenous Contrast CLINICAL HISTORY: Reason for exam: Left neck swelling, hx mass and trac.. TECHNIQUE: Axial computed tomography images of the cervical spine without intravenous contrast. CTDI is 28.14 mGy and DLP is 3137.05 mGy-cm. Automated exposure control was utilized for the study. A dose lowering technique was utilized adhering to the principles of ALARA. COMPARISON: No relevant prior studies available. FINDINGS: Vertebrae: Slight straightening of the normal cervical curvature may be due to positioning or spasm. No acute fracture or subluxation is seen. Soft tissues: Chronic appearing calcification along the posterior soft tissues. Mastoid air cells: Partial opacification of the mastoid air cells bilaterally suggesting prior mastoiditis. Pleural space: Partial visualization of small right pleural effusion. DISCS/SPINAL CANAL/NEURAL FORAMINA: C2-C3: Unremarkable. No significant disc disease. No stenosis. C3-C4: Unremarkable. No significant disc disease. No stenosis. C4-C5: Unremarkable. No significant disc disease. No stenosis. C5-C6: Mild degenerative disc disease. No stenosis. C6-C7: Mild degenerative disc disease. No stenosis. C7-T1: Unremarkable. No significant disc disease. No stenosis. IMPRESSION: Slight straightening of the normal cervical curvature may be due to positioning or spasm. No acute fracture or subluxation is seen. Mild degenerative changes in the mid cervical spine. No spinal stenosis is seen. Electronically signed by: Luis Lewis MD 04/30/23 02:12 AM Chest X-Ray 04/29/23 21:26 SINGLE VIEW CHEST CLINICAL HISTORY: Sepsis. Recent heart surgery. FINDINGS: An AP, portable, upright chest radiograph is obtained. No prior studies are available for comparison at the time of dictation. The patient is status post midline sternotomy. The heart is enlarged. The pulmonary vasculature is noncongested. There are right larger than left pleural effusions with dependent atelectasis. No pneumothorax is seen. The bony thorax is grossly intact. IMPRESSION: 1. Cardiomegaly without radiographic evidence of congestive failure. 2. Right larger than left pleural effusions with dependent atelectasis. ACT 112: Negative or not required by law. Electronically signed by: Ayan Saxena M.D. 04/29/2023 11:[address] 04/29/23 21:27 Exam(s): CT CHEST Without Contrast EXAM: CT Chest Without Intravenous Contrast CLINICAL HISTORY: Reason for exam: neck/chest mass hx. TECHNIQUE: Axial computed tomography images of the chest without intravenous contrast. CTDI is 27.46 mGy and DLP is 3137.05 mGy-cm. Automated exposure control was utilized for the study. A dose lowering technique was utilized adhering to the principles of ALARA. COMPARISON: No relevant prior studies available. FINDINGS: Trachea: Previous tracheotomy. Lungs: There are mild emphysematous changes in the lungs bilaterally, greatest in the upper lobes. Small areas of linear scarring or subsegmental atelectasis are present inferiorly. Pleural space: There are loculated appearing bilateral pleural fluid collections measuring 4.5 cm thick on the right and 3.7 cm on the left with adjacent atelectasis. No pneumothorax. Heart: Unremarkable. No cardiomegaly. No significant pericardial effusion. No significant coronary artery calcifications. Bones/joints: Previous sternotomy. Mild degenerative changes in the spine. No acute fracture or subluxation is seen. Soft tissues: Unremarkable. Vasculature: The thoracic aorta is nondilated. This is a noncontrast study. Lymph nodes: Unremarkable. No enlarged lymph nodes. IMPRESSION: There are loculated appearing bilateral pleural fluid collections measuring 4.5 cm thick on the right and 3.7 cm on the left with adjacent atelectasis. Electronically signed by: Luis Lewis MD 04/30/23 02:14 AM Abdomen/Pelvis CT 04/29/23 22:06 Exam(s): CT ABDOMEN + PELVIS Without Contrast EXAM: CT Abdomen and Pelvis Without Intravenous Contrast CLINICAL HISTORY: Reason for exam: pain. TECHNIQUE: Axial computed tomography images of the abdomen and pelvis without intravenous contrast. CTDI is 28.14 mGy and DLP is 3137.05 mGy-cm. Automated exposure control was utilized for the study. A dose lowering technique was utilized adhering to the principles of ALARA. COMPARISON: No relevant prior studies available. FINDINGS: Lung bases: Unremarkable. No mass. No consolidation. ABDOMEN: Liver: The liver is mildly enlarged measuring 20 cm craniocaudad. No focal liver lesion is seen. Gallbladder and bile ducts: Unremarkable. No calcified stones. No ductal dilation. Pancreas: Unremarkable. No ductal dilation. Spleen: Unremarkable. No splenomegaly. Adrenals: Unremarkable. No mass. Kidneys and ureters: The kidneys are unremarkable. No hydronephrosis or ureterolithiasis is seen. Stomach and bowel: Unremarkable. No obstruction. No mucosal thickening. PELVIS: Appendix: The appendix is normal. Bowel loops are nondilated. No acute inflammatory changes are seen involving the bowel. Bladder: Unremarkable. No stones. Reproductive: Unremarkable as visualized. ABDOMEN and PELVIS: Intraperitoneal space: Unremarkable. No free air. No significant fluid collection. Bones/joints: Mild degenerative changes in the spine. No acute fracture or subluxation is seen. Soft tissues: Unremarkable. Vasculature: Unremarkable. No abdominal aortic aneurysm. Lymph nodes: Unremarkable. No enlarged lymph nodes. IMPRESSION: 1. The kidneys are unremarkable. No hydronephrosis or ureterolithiasis is seen. 2. The appendix is normal. Bowel loops are nondilated. No acute inflammatory changes are seen involving the bowel. Electronically signed by: Luis Lewis MD 04/30/23 02:15 AM Diagnostic Findings EKG as per my interpretation : Rate 90, NSR, normal axis, diffuse T wave abnormalities
[2023-04-30 04:09] LABS: Thyroid Stimulating Hormone 6.734 uIu/ml (0.300-4.500)
[2023-04-30] MEDS ORDERED: KETOROLAC TROMETHAMINE 15 MG/ML VIAL IV PRN (04:12)
[2023-04-30] MEDS ORDERED: ACETAMINOPHEN 325 MG TAB PO PRN (04:12)
[2023-04-30] MEDS ORDERED: LORazepam 0.5 MG TAB PO PRN (04:16)
[2023-04-30] MEDS ORDERED: diphenhydrAMINE 50 MG/ML VIAL IV PRN (04:16)
[2023-04-30 04:57] LABS: T4 Free Thyroxine 1.58 ng/dl (0.61-1.60)
[2023-04-30 07:18] LABS: Basophils # (auto) 0.01 K/uL (0.00-0.20); Basophils % (auto) 0.2 %; Eosinophils # (auto) 0.26 K/uL (0.00-0.50); Eosinophils % (auto) 5.7 %; Hematocrit (blood only) 33.6 % (42.0-52.0); Hemoglobin 10.7 g/dl (14.0-18.0); Immature Granulocytes # (auto) 0.06 K/uL (0.01-0.20); Immature Granulocytes % (auto) 1.3 %; Lymphocytes # (auto) 0.96 K/uL (1.20-3.40); Lymphocytes % (auto) 21.1 %; Mean Corpuscular Hemoglobin 28.8 pg (25.0-34.0); Mean Corpuscular Hgb Conc 31.8 g/dL (32.0-36.0); Mean Corpuscular Volume 90.6 fL (80.0-100.0); Mean Platelet Volume 9.4 fL (9.4-12.4); Monocytes # (auto) 0.43 K/uL (0.11-0.59); Monocytes % (auto) 9.4 %; Neutrophils # (auto) 2.84 K/uL (1.40-6.50); Neutrophils % (auto) 62.3 %; Platelet Count 237 K/uL (130-400); RDW Coefficient of Variation 15.9 % (11.5-14.5); RDW Standard Deviation 52.5 fL (36.4-46.3); Red Blood Count 3.71 M/uL (4.70-6.10); White Blood Count 4.56 K/ul (4.8-10.8)
[2023-04-30 07:31] LABS: BUN Creatinine Ratio 23.6 (10-20); Calcium 8.3 mg/dl (8.6-10.3); Creatinine Clr Calc Pharmacy 174.2 ml/min; Est GFR (African American) 134.3 ml/min; Est GFR (Non-African American) 115.9 ml/min; Potassium 3.5 mmol/L (3.5-5.1)
[2023-04-30 08:11] LABS: Hematocrit (blood only) 32.6 % (42.0-52.0); Hemoglobin 10.4 g/dl (14.0-18.0)
[2023-04-30 08:21] LABS: Estimated Average Glucose 117 mg/dl; Hemoglobin A1C 5.7 % (4.5-5.6)
--- NOTE | 2023-04-30 08:45 | Electrocardiogram Report ---
Test Reason : Blood Pressure : / mmHG Vent. Rate : 092 BPM Atrial Rate : 092 BPM P-R Int : 172 ms QRS Dur : 098 ms QT Int : 338 ms P-R-T Axes : 048 013 254 degrees QTc Int : 417 ms Normal sinus rhythm T wave abnormality, consider lateral ischemia Abnormal ECG No previous ECGs available Confirmed by Kalen Mancuso ([id number]) on 04/30/2023 8:44:56 AM Referred By: REFERRED SELF Confirmed By:Kalen Mancuso
[2023-04-30] MEDS ORDERED: bisacodyL 10 MG SUPP PR PRN (08:48)
[2023-04-30] MEDS ORDERED: POLYETHYLENE (MIRALAX) 17 GM PACK PO PRN (08:48)
[2023-04-30] MEDS: TAMSULOSIN HCL 0.4 MG CAP PO SCH (10:55)
[2023-04-30] MEDS: ESCITALOPRAM OXALATE 10 MG TAB PO SCH (10:55)
[2023-04-30] MEDS: AMIODARONE 200 MG TAB PO SCH (10:56)
[2023-04-30] MEDS: ARIPiprazole 5 MG TAB PO SCH ×2 (10:56→20:07)
[2023-04-30] MEDS: FAMOTIDINE 20 MG TAB PO SCH ×2 (10:57→20:07)
[2023-04-30] MEDS: GABAPENTIN 100 MG CAP PO SCH ×2 (10:57→20:08)
[2023-04-30] MEDS: ERTAPENEM SODIUM 1,000 MG in SYRINGE 0 ML IV SCH (10:57)
[2023-04-30] MEDS: DOCUSATE SODIUM 100 MG CAP PO SCH ×2 (10:58→20:07)
--- NOTE | 2023-04-30 11:09 | ENT Consultation ---
Date of Consultation April 30, 2023 Assessment & Plan (1) Cellulitis of neck: (2) Sialoadenitis of submandibular gland: Plan 42yM with recent complicated L deep space neck infection requiring multiple I+Ds, tracheostomy since decannulated now with recurrent L submandibular swel ling. Exam shows induration of L submandibular region consistent with cellulitis. CT c-spine with hypodense L SMG with surrounding inflammation. CT findings discussed with radiology, no sign of abscess but consistent with necrosis. Clinically he is stable without airway edema, stable on IV abx. -Continue IV abx, consider ID consult for input -CT neck, ideally with contrast but patient is adamantly refusing due to prior reaction -Without obvious abscess on exam/imaging and given patient is clinically well appearing/not septic, no plan for urgent surgery -If patient worsens clinically or abscess noted on CT neck, would recommend transfer to tertiary care center due to complex history and anticipated challenge of further procedures -NPO at [place] for reassessment in AM -Will continue to follow, please call with questions History of Present Illness Reason for Consultation: Left neck swelling Attending Physician: Power Russ MD History of Present Illness 42-year-old male with a history of recent L deep neck space abscess requiring prolonged hospital course, multiple I+Ds, tracheostomy at [facility] [address] now with 2 days of left neck swelling. Notes progressive swelling of L neck over the past 2 days, similar to his initial presentation. No pain, mealtime fluctuations. No dyspnea, stridor, dysphagia, throat pain, dysphonia, otalgia. No dental pain. 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 Cx GPC, GNR, beta-hemolytic strep. He was discharged to LTAC where completed 14 weeks of abx (possibly discontinued without ID approval) and was decannulated. Sent to [facility] rehab yesterday. In ED, WBC 3, CT c-spine without contrast showed per my read a hypodensity involving the L SMG with surrounding stranding. No subcutaneous gas or airway edema. Since admission, he is feeling stable. Tolerating diet well. No worsening of edema. Allergies Allergy/AdvReac Type Severity Reaction Status Date / Time shellfish derived Allergy Severe Anaphylaxis Verified 04/30/23 03:59 penicillin G Allergy Unknown Unknown Verified 04/30/23 07:19 amoxicillin Allergy Unknown Verified 04/30/23 07:19 pecan nut Allergy Unknown Verified 04/30/23 07:19 peanut AdvReac Unknown Unknown Verified 04/30/23 07:19 Home Medications Medication Instructions Recorded Confirmed Type Lovenox 40 mg SC BID 04/30/23 04/30/23 History acetaminophen 650 mg tablet 650 mg PO Q4H PRN Pain 04/30/23 04/30/23 History amiodarone 200 mg PO DAILY 04/30/23 04/30/23 History aripiprazole 5 mg tablet (Abilify) 5 mg PO 2XD 04/30/23 04/30/23 History bisacodyl 10 mg rectal suppository 10 mg MA DAILY PRN Constipation 04/30/23 04/30/23 History bumetanide 1 mg PO BID 04/30/23 04/30/23 History dextrose 40 % oral gel 15 g PO DIRECTED PRN 04/30/23 04/30/23 History Hypoglycemia dextrose 50 % in water (D50W) 12.5 g IV DIRECTED PRN 04/30/23 04/30/23 History Hypoglycemia dextrose 50 % in water (D50W) 25 g IV DIRECTED PRN 04/30/23 04/30/23 History Hypoglycemia diltiazem HCl 90 mg PO QID 04/30/23 04/30/23 History docusate sodium 100 mg capsule 100 mg PO BID 04/30/23 04/30/23 History escitalopram oxalate 10 mg PO DAILY 04/30/23 04/30/23 History famotidine 20 mg tablet 20 mg PO BID 04/30/23 04/30/23 History gabapentin 100 mg capsule 100 mg PO BID 04/30/23 04/30/23 History magnesium hydroxide 2,400 mg/10 mL 2,400 mg PO DIRECTED PRN 04/30/23 04/30/23 History oral suspension (Milk Of Magnesia Constipation Concentrated) polyethylene glycol 3350 17 gram 17 g PO DAILY PRN Constipation 04/30/23 04/30/23 History oral powder packet potassium chloride 20 meq PO TID 04/30/23 04/30/23 History sennosides 8.6 mg tablet (Senokot) 8.6 mg PO DAILY PRN Constipation 04/30/23 04/30/23 History sodium phosphates 19 gram-7 118 ml MA DAILY PRN Constipation 04/30/23 04/30/23 History gram/118 mL enema (Fleet Enema) tamsulosin 0.4 mg PO DAILY 04/30/23 04/30/23 History Patient History Medical History Atrial fibrillation Tachycardia Social History Smoking Status: Former smoker Second Hand Exposure: No; Do You Dip or Chew Tobacco: No; Tobacco Cessation Education Requested by Patient: No Hx Alcohol Use: No Hx Substance Use: No Preferred Language: Hebrew Ocean Fishing Guide Required: No Beliefs That Will Affect Care: None Current Living Situation: Rehab Current Living Situation Comment: [facility] for a few days Other Information That Helps Us Care for You: No Feels Safe at Home: Yes Safety Concerns: Feels Safe At This Time Assistive Devices: Walker Physical Exam Physical Exam: General: The patient is well-developed, well-nourished, and in no acute distress. Head and Face: Skull: No obvious deformities Salivary glands: The parotid and right submandibular glands are normal in appearance and there are no masses on palpation. The left SMG is difficult to palpate due to surrounding induration. Bimanual palpation with induration of gland without palpable stone or mass. Facial strength: Facial motion is symmetric and without weakness. Eyes: Eyelids: There is no periorbital edema. Conjunctiva: There is no conjunctival erythema. Extraocular muscles: Extraocular movement is normal. Nystagmus: There is no nystagmus. Ears: Right auricle: The pinna is normally formed without skin lesion or mass. Left auricle: The pinna is normally formed with dry flaky skin Right EAC: There is no external auditory canal erythema, edema, lesion, or mass. +cerumen Left EAC: There is no external auditory canal erythema, edema, lesion, or mass. +cerumen Hearing: Clinical speech center receptionist threshold testing is grossly normal. Nose: External: There is no gross external deformity, tenderness, or skin lesion or mass. Mucosa: There is no nasal mucosal edema, inflammation, lesion, or mass. Crusting bilaterally Septum: The nasal septum is midly deviated left Nasal cavity: There is no inferior turbinate hypertrophy, edema, inflammation, or mass bilaterally. The inferior meatus and middle meatus were clear bilaterally without mass, lesion, mucopurulence, or polyposis. Oral cavity/Oropharynx: Lips: There are no lip lesions or masses. Oral cavity: There is no inflammation, lesion, or mass involving the gums, gingiva, floor of mouth, buccal mucosa, retromolar trigone, hard palate, soft palate, tongue. Dentition is moderate without obvious abscess. Oropharynx: There is no inflammation, lesion, or mass involving the palatine tonsils or posterior pharyngeal wall. Neck: General: Firm induration of left submandibular region with mild erythema, limited by tinsley. No fluctuance. Healed L neck incision. The trachea is midline. Healing tracheostoma without surrounding cellulitis Respiratory/Pulmonary: There is no stertor or stridor. There is normal respiratory effort without acute distress. Cardiovascular: There is no visible extremity edema. Skin: There are no visible lesions or masses involving the skin of the head and neck region. Neurological: Cranial nerves: Cranial nerve II is noted to be intact by grossly normal visual acuity. Cranial nerves III, IV, and are noted to be intact by normal extraocular movements. Cranial nerve VII is noted to be intact by symmetric and normal facial movement. Cranial nerve VIII is noted to be intact by a relatively normal clinical speech center receptionist threshold. Cranial nerve IX is noted to be intact by an intact gag reflex and normal palatal movement. Cranial nerve X is noted to be intact by a normal voice. Cranial nerve XI is noted to be intact by normal shoulder and head movement. Cranial nerve XII is noted to be intact by normal symmetric tongue movement. Vestibular system: There is no spontaneous or gaze evoked nystagmus. Psychiatric: Mental status: The patient is awake and alert. Mood/affect: The patient has a normal mood and affect. Procedure: Flexible fiberoptic laryngoscopy Indication: neck swelling Details: Following the topical application of afrin and lidocaine, the flexible laryngoscope was inserted into the nasal cavity. The septum, turbinates, and nasal mucosa were normal. The nasopharynx was normal. The palatine tonsils were normal bilaterally. The base of tongue and vallecula were normal. The epiglottis, bilateral arytenoids, and bilateral aryepiglottic folds, and bilateral false vocal folds were normal. The true vocal folds were normal without masses or lesions. There was normal mobility of the true vocal folds bilaterally. The bilateral pyriform sinuses and postcricoid space was normal. There was no pooling of secretions. No aspiration or penetration was visualized. The patient tolerated the procedure well. Results & Data Vital Signs (Past 12 Hours) Vital Signs Temp Pulse Pulse Resp BP BP Pulse Ox 04/30/23 07:23 36.5 C 94 H 18 102/67 96 04/30/23 06:12 04/30/23 06:12 36.5 C 97 H 17 128/85 99 04/30/23 05:00 87 14 119/71 95 04/30/23 03:00 97 H 20 125/71 96 04/30/23 01:00 88 19 95 04/30/23 01:00 105/63 04/30/23 00:30 87 19 93/62 L 96 04/30/23 00:25 88 17 97 04/29/23 23:30 85 20 04/29/23 23:30 107/66 04/30/23 01:28 90 O2 Del Method 04/30/23 07:23 Room Air 04/30/23 06:12 Room Air 04/30/23 06:12 Room Air 04/30/23 05:00 Room Air 04/30/23 03:00 Room Air 04/30/23 01:00 04/30/23 01:00 04/30/23 00:30 04/30/23 00:25 04/29/23 23:30 04/29/23 23:30 04/30/23 01:28 PG Care Time/CCT Total # of Minutes Spent Total Time Spent with Patient: Total time spent is greater than 50% in coordination of care (as documented) at patient's floor/unit and/or counseling patient: Coding Level of Care Code 85056 IN/OBS CONSULT LVL 4,60M (25 - SIGNIFICANT, SEPARATELY IDENTIFIABLE ) Diagnoses Cellulitis of neck L03.221 Sialoadenitis of submandibular gland K11.20 CPT Codes LARYNGOSCOPY DIAGNOSTIC FLEXIBLE - 87704 ([id number])
[2023-04-30] MEDS: VANCOMYCIN HCL 1,500 MG in SODIUM CHLORIDE 0.9% 500 ML IV SCH ×2 (12:08→13:17)
--- NOTE | 2023-04-30 12:36 | Pharmacy Report ---
Pharmacy PK ABX Note - Date of Service April 30, 2023 - Assessment and Plan Assessment 42 year old M receiving vancomycin and ertapenem for treatment of neck cellulitis. Blood cultures pending, renal function stable. Day #1 of antimicrobial therapy. Plan Vancomycin * Loading dose: 2250 mg IV x 1 * Maintenance dose: 1500 mg IV every 12 hours * Regimen is predicted to achieve target AUC/KENZIE of 400-600 mg/L.hr * Random level tomorrow prior to afternoon dose. Pharmacy will continue to follow and will adjust dose/frequency as necessary. Thank you. Pharmacy has transitioned to AUC monitoring for vancomycin. AUC/KENZIE is the preferred PK/PD target and is associated with decreased risk of nephrotoxicity compared to traditional trough targets.
[2023-04-30] MEDS: ENOXAPARIN INJ 40 MG/0.4 ML SYR SQ SCH (13:11)
[2023-04-30] MEDS: diphenhydrAMINE HCL 25 MG/10 ML UDC PO PRN (13:17)
[2023-04-30 13:18] LABS: Appearance Urine Clear (Clear); Bacteria Urine Automated Negative (Negative); Bilirubin Urine Negative (Negative); Blood Urine Negative (Negative); Color Urine Dark Yellow; Epithelial Cell Urine Auto >30 /lpf (0-5); Glucose Urine UA Negative (Negative); Ketones Urine Negative (Negative); Leukocyte Esterase Urine Negative (Negative); Nitrite Urine Negative (Negative); Protein Urine 1+ (Negative); Specific Gravity Urine 1.021 (1.000-1.030); Urobilinogen Urine Negative (Negative); pH Urine 5.5 (4.5-7.5)
[2023-04-30 13:22] LABS: Hematocrit (blood only) 33.5 % (42.0-52.0); Hemoglobin 10.9 g/dl (14.0-18.0)
--- NOTE | 2023-04-30 14:57 | CT Scan Report ---
CT SCAN OF THE NECK WITHOUT IV CONTRAST CLINICAL HISTORY: Left-sided neck pain. History of previous neck surgeries/abscess. COMPARISON STUDY: CT of the cervical spine performed earlier the same day 04/30/2023. TECHNIQUE: Unenhanced CT scan of the soft tissues of the neck was performed from the skull base to th e upper chest. Images are reviewed in the axial, sagittal, and coronal planes. IV contrast was not a dministered due to reported history of contrast allergy. Note that the examination is significantly s uboptimal without IV contrast. A dose lowering technique was utilized adhering to the principles of ALARA. FINDINGS: Pharynx: There is evidence of previous tracheostomy. The unenhanced pharyngeal soft tissues are gross ly unremarkable. The pharyngeal airway is widely patent. There is no evidence of mass lesion or fluid collection on this unenhanced examination. The vocal cords are symmetric. The parapharyngeal fat is well maintained. The prevertebral/retropharyngeal soft tissues are within normal limits. Lymphadenopathy: Prominent cervical chain lymph nodes are likely reactive. A small business sales representative left cerv ical chain node on image #192 measures 1.7 x 0.8 cm. Thyroid: Normal in size and attenuation. Salivary glands: The parotid and right submandibular glands are within normal limits. No calcified si aloliths are identified. There is soft tissue thickening and mild infiltration seen around the left s ubmandibular gland. Soft tissue again extends imaging of the soft tissues inferior to the gland. Brain parenchyma: The visualized brain parenchyma at the skull base is normal in appearance. Vascular structures: Unremarkable. Skeletal structures: Imaged portions of the calvarium at the skull base are within normal limits. The cervical spine appears intact. The patient is status post midline sternotomy. No lytic or blastic le shaista is seen. Orbits: The bony orbits are intact. Orbital contents are normal as visualized. Sinuses and mastoids: There is mild mucosal thickening in the right maxillary antrum. The remaining p aranasal sinuses are clear. There are left larger than right mastoid effusions. Lung apices: Emphysematous change is noted at the apices. Visualized apical lung parenchyma is otherw ise clear. IMPRESSION: 1. No acute inflammatory process is identified involving the pharyngeal soft tissues and there is no evidence of abscess on this unenhanced examination. 2. There is soft tissue thickening and infiltration identified around the left submandibular gland. N o calcified sialoliths are identified, and this could represent a nonspecific infectious/inflammatory sialoadenitis or possibly vascular compromise of the gland. Clinical correlation will be essential. 3. There is evidence of previous tracheostomy. 4. Emphysema. 5. Bilateral mastoid effusions. 6. Additional findings as above. ACT 112: Negative or not required by law. Electronically signed by: Ayan Saxena M.D. 04/30/2023 2:54 PM
--- NOTE | 2023-04-30 15:00 | Communication Note ---
Date of Service: April 30, 2023 Patient was seen and examined at bedside. 42-year-old man with PMH of HTN, PAF, anxiety/mood disorder, peritonsillar abscess with rare complication in the form of mediastinal abscesses that required surgery with sternotomy and thoracotomy along with decortication of the right lung/tracheostomy tube placement who was on prolonged antibiotic therapy w hich got discontinued about a week ago while at LTAC facility per patient presented to the ED 04/30 with complaint of left-sided neck swelling with some discomfort similar to episode from a few months ago leading to peritonsillar abscess/complications [see above]. He is being managed for the following: Left submandibular cellulitis History of complicated Left peritonsillar abscess [see above] Patient presents with left-sided neck swelling and discomfort Was recently weaned off of prolonged course of antibiotic at the LTAC facility. Concern of premature termination of antibiotic therapy at LTAC facility per family member. Patient adamantly refused IV contrast use due to allergic reaction in the past despite various counseling/was offered options to use steroid and Benadryl to alleviate allergic reaction. Admitting C-spine CT and CTAP with no acute finding. Admitting CT soft tissue neck suggestive of soft tissue thickening and infiltration around the left submandibular gland and bilateral mastoid effusions. Admitting procalcitonin negative. Patient was started on vancomycin and ertapenem, continue. ENT evaluated, n.p.o. midnight for reassessment in the a.m. Clinically induration noted in the left submandibular area, no tenderness, some swelling noted. Patient denies any difficulty swallowing/difficulty breathing/pain. Infectious disease consult placed. Called (Dr. Lr, contact number [phone]). Awaiting call back. Bilateral loculated pleural effusion Admitting CT chest with bilateral loculated pleural effusion right [4.5 cm] greater than left [3.7 cm] Patient saturating on room air, hemodynamically stable. Pulmonology consult. Appreciate recommendation. Prediabetes: A1c of 5.7, repeat A1c in 3 months, encouraged lifestyle modification. Other chronic medical conditions: Continue with/resume home meds as and when able. HTN, BP on the lower side possible CHF as per patient, patient on the dry side PAF, patient NSR, patient not on anticoagulation anxiety/mood disorder, stable history of prolonged intubation GERD, stable on H2 beverly past tobacco abuse DVT prophylaxis. Lovenox subcu Full code Patient mother Ms. Deb Cerda, contact #[phone]. For detailed information, please refer to today's H&P note. Please note the above document was generated using voice recognition software. It may contain grammatical, syntax or spelling errors. Any formal questions or concerns about the content, text or information contained within the body of this dictation should be directly addressed to the undersigned for clarification.
--- NOTE | 2023-04-30 16:26 | Pulmonary Consultation ---
Date of Consultation April 30, 2023 Assessment & Plan (1) Pleural effusion on left: (2) Pleural effusion on right: Plan Impression: 42-year-old male with extensive neck infection and what sounds like mediastinitis. 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 He was ventilator dependent but has now been decannulated. He was admitted to the hospital with left neck swelling and pain. ENT has evaluated the patient. Is been placed on antibiotics. As part of his work-up he had a CT of the chest performed which revealed bilateral lower lobe small pleural effusions which appear to have split pleural sign. The sterility of these lesions cannot be obtained radiographically. Recommendations: 1. Bilateral pleural effusions: Unclear if these represent sequelae from the patient's prior surgical intervention or if these could represent potential undrained focus of infection. They could be bland in nature however the only way to know for sure would be to sample the patient. I discussed extensively options with the patient as well as with his family at bedside. Most definitive approach would be to transfer the patient for thoracic surgery evaluation as these may require decortication to allow for complete expansion of the lung. The patient is not enthusiastic about additional surgical intervention. He does not appear septic currently. We discussed doing nothing and trying to obtain imaging studies and records from the patient's prior hospitalization (which I thinks needs to happen regardless). This would potentially place the patient at risk of clinical deterioration while were waiting to get records and unclear how quickly we can get records and imaging studies on an weekend. Alternatively, I can try and sample the effusions to determine their sterility and if they were infected, proceed with potential pigtail catheter placement and mist 2 protocol. The patient and his family are in favor of sampling the effusions and making additional recommendations based on those results. 2. Recommend the primary service discussed the case with the thoracic surgery team at [facility] where he was cared for previously given the complicated nature of his intrathoracic pathology. Records should be obtained including imaging studies forwarded into our system for review. The above recommendations and plan were discussed with the patient and his family at bedside. Questions were answered to the best my ability. They are in agreement with the plan as outlined. History of Present Illness Attending Physician: Power Russ MD History of Present Illness Hospitalist to assist in evaluation management this patient with bilateral pleural effusions and split pleural sign with complicated medical history. History is obtained from discussion with the patient as well as family members at bedside and reviewed electronic medical record. The patient is a 42-year-old male who was admitted to [facility] March 03 after being transferred from [facility] emergency room for strep throat and multiloculated peritonsillar abscess. He had I&D of the peritonsillar abscess by ENT in [place]. He was unable to be liberated from the ventilator postoperatively due to significant swelling. Cultures grew gram-negative rods gram-positive cocci in chains and beta- hemolytic strep. Patient was subsequently transferred to a tertiary care facility ([facility]). He had prolonged intubation and mechanical ventilation eventually requiring tracheostomy. Reportedly there were multiple procedures done for I&D washout. The patient underwent sternotomy due to what sounds like mediastinitis. He may have had pleural intervention performed as well although it is not entirely clear. He was placed on antibiotics and had ID consultation. Unfortunately we do not have any notes available from his prior hospitalization at [facility] or [facility]. [facility] [place] [facility]. He was weaned off of the ventilator. Antibiotics were discontinued at some point. The patient developed left-sided neck swelling and some discomfort. This prompted return to the emergency room. He was seen by otolaryngology. No discrete fluctuant mass was appreciated on exam. CT of the neck showed no definitive drainable abscess. He had a CT of the chest performed which revealed bilateral pleural effusions with a split pleural sign. He was initiated on antibiotics including vancomycin and ertapenem and ID consultation was obtained which is currently pending. The patient is hemodynamically stable. He is not having any respiratory issues. He denies any chest pain. Allergies Allergy/AdvReac Type Severity Reaction Status Date / Time shellfish derived Allergy Severe Anaphylaxis Verified 04/30/23 03:59 penicillin G Allergy Unknown Unknown Verified 04/30/23 07:19 amoxicillin Allergy Unknown Verified 04/30/23 07:19 pecan nut Allergy Unknown Verified 04/30/23 07:19 peanut AdvReac Unknown Unknown Verified 04/30/23 07:19 Home Medications Medication Instructions Recorded Confirmed Type Lovenox 40 mg SC BID 04/30/23 04/30/23 History acetaminophen 650 mg tablet 650 mg PO Q4H PRN Pain 04/30/23 04/30/23 History amiodarone 200 mg PO DAILY 04/30/23 04/30/23 History aripiprazole 5 mg tablet (Abilify) 5 mg PO 2XD 04/30/23 04/30/23 History bisacodyl 10 mg rectal suppository 10 mg NJ DAILY PRN Constipation 04/30/23 04/30/23 History bumetanide 1 mg PO BID 04/30/23 04/30/23 History dextrose 40 % oral gel 15 g PO DIRECTED PRN 04/30/23 04/30/23 History Hypoglycemia dextrose 50 % in water (D50W) 12.5 g IV DIRECTED PRN 04/30/23 04/30/23 History Hypoglycemia dextrose 50 % in water (D50W) 25 g IV DIRECTED PRN 04/30/23 04/30/23 History Hypoglycemia diltiazem HCl 90 mg PO QID 04/30/23 04/30/23 History docusate sodium 100 mg capsule 100 mg PO BID 04/30/23 04/30/23 History escitalopram oxalate 10 mg PO DAILY 04/30/23 04/30/23 History famotidine 20 mg tablet 20 mg PO BID 04/30/23 04/30/23 History gabapentin 100 mg capsule 100 mg PO BID 04/30/23 04/30/23 History magnesium hydroxide 2,400 mg/10 mL 2,400 mg PO DIRECTED PRN 04/30/23 04/30/23 History oral suspension (Milk Of Magnesia Constipation Concentrated) polyethylene glycol 3350 17 gram 17 g PO DAILY PRN Constipation 04/30/23 04/30/23 History oral powder packet potassium chloride 20 meq PO TID 04/30/23 04/30/23 History sennosides 8.6 mg tablet (Senokot) 8.6 mg PO DAILY PRN Constipation 04/30/23 04/30/23 History sodium phosphates 19 gram-7 118 ml NJ DAILY PRN Constipation 04/30/23 04/30/23 History gram/118 mL enema (Fleet Enema) tamsulosin 0.4 mg PO DAILY 04/30/23 04/30/23 History Patient History Medical History Atrial fibrillation Tachycardia Social History Smoking Status: Former smoker Second Hand Exposure: No; Do You Dip or Chew Tobacco: No; Tobacco Cessation Education Requested by Patient: No Hx Alcohol Use: No Hx Substance Use: No Preferred Language: Kyrgyz Feed House Supervisor Required: No Beliefs That Will Affect Care: None Current Living Situation: Rehab Current Living Situation Comment: [facility] for a few days Other Information That Helps Us Care for You: No Feels Safe at Home: Yes Safety Concerns: Feels Safe At This Time Assistive Devices: Walker Review of Systems Review of Systems: Please refer to admission H&P. No additions or deletions Physical Exam Constitutional: WD/WN, vitals as above Neck: trachea midline, no thyromegaly Trach site dressed Respiratory: no respiratory distress, no labored breathing, no cough and not tachypneic Auscultation: + diminished lung sounds Slightly decreased breath sounds at the bilateral bases. Some dullness to percussion. Cardiovascular: RRR, no murmur, no edema Gastrointestinal (Abdomen): normal bowel sounds, soft, nontender, no hepatosplenomegaly Musculoskeletal: Extremities: extremities normal to inspection Skin: no rashes, warm and dry Neurologic: Nonfocal exam Lymphatic: no cervical lymphadenopathy Results & Data Results & Data Vital Signs (Past 12 Hours) Vital Signs Temp Pulse Resp BP Pulse Ox O2 Del Method 04/30/23 13:28 37.2 C 101 H 18 110/72 96 Room Air 04/30/23 08:00 Room Air 04/30/23 07:23 36.5 C 94 H 18 102/67 96 Room Air 04/30/23 06:12 Room Air 04/30/23 06:12 36.5 C 97 H 17 128/85 99 Room Air 04/30/23 05:00 87 14 119/71 95 Room Air Critical Care Results & Data Vital Signs (Past 12 Hours) Vital Signs Temp Pulse Resp BP Pulse Ox O2 Del Method 04/30/23 13:28 37.2 C 101 H 18 110/72 96 Room Air 04/30/23 08:00 Room Air 04/30/23 07:23 36.5 C 94 H 18 102/67 96 Room Air 04/30/23 06:12 Room Air 04/30/23 06:12 36.5 C 97 H 17 128/85 99 Room Air 04/30/23 05:00 87 14 119/71 95 Room Air Lab & Micro Results (Past 24 Hours) RBC 3.71 M/uL (4.70-6.10) L 04/30/23 WBC 4.56 K/ul (4.8-10.8) L 04/30/23 Hgb 10.9 g/dl (14.0-18.0) L 04/30/23 Hct 33.5 % (42.0-52.0) L 04/30/23 MCV 90.6 fL (80.0-100.0) 04/30/23 MCH 28.8 pg (25.0-34.0) 04/30/23 MCHC 31.8 g/dL (32.0-36.0) L 04/30/23 RDW Standard Deviation 52.5 fL (36.4-46.3) H 04/30/23 RDW Coefficient of Variation 15.9 % (11.5-14.5) H 04/30/23 Plt Count 237 K/uL (130-400) 04/30/23 MPV 9.4 fL (9.4-12.4) 04/30/23 Neutrophils (%) (Auto) 62.3 % 04/30/23 Lymphocytes (%) (Auto) 21.1 % 04/30/23 Monocytes # (Auto) 0.43 K/uL (0.11-0.59) 04/30/23 Eosinophils # (Auto) 0.26 K/uL (0.00-0.50) 04/30/23 Immature Granulocyte % (Auto) 1.3 % 04/30/23 Neutrophils # (Auto) 2.84 K/uL (1.40-6.50) 04/30/23 Lymphocytes # (Auto) 0.96 K/uL (1.20-3.40) L 04/30/23 Monocytes # (Auto) 0.43 K/uL (0.11-0.59) 04/30/23 Eosinophils # (Auto) 0.26 K/uL (0.00-0.50) 04/30/23 Basophils # (Auto) 0.01 K/uL (0.00-0.20) 04/30/23 Immature Granulocyte # (Auto) 0.06 K/uL (0.01-0.20) 3 Na 136 mmol/L (136-145) 04/30/23 K 3.5 mmol/L (3.5-5.1) 04/30/23 Cl 102 mmol/L (98-107) 04/30/23 CO2 28 mmol/L (21-32) 04/30/23 Anion Gap 6 (3-11) 04/30/23 BUN 17 mg/dl (6-23) 04/30/23 Creatinine 0.72 mg/dl (0.6-1.4) 04/30/23 Estimated GFR ( Amer) 134.3 ml/min 04/30/23 Estimated GFR (Non-Af Amer) 115.9 ml/min 04/30/23 BUN/Creatinine Ratio 23.6 (10-20) H 04/30/23 Glu 118 mg/dl (70-99(Fasting)) H 04/30/23 Ca 8.3 mg/dl (8.6-10.3) L 04/30/23 Total Bilirubin 0.4 mg/dl (0.2-1.0) 04/29/23 Direct Bilirubin 0.1 mg/dl (0-0.2) 04/29/23 AST 36 U/L (13-39) 04/29/23 ALT 46 U/L (7-52) 04/29/23 Alkaline Phosphatase 80 U/L (34-104) 04/29/23 TP 7.1 gm/dl (6.0-8.3) 04/29/23 Albumin 3.4 gm/dl (3.4-5.0) 04/29/23 Mg 1.9 mg/dl (1.7-2.4) 04/29/23 22:52 Calcium Level 8.3 mg/dl (8.6-10.3) L 04/30/23 06:50 Diagnostic Findings (Past 24 Hours) Cervical Spine CT 04/29/23 21:26 Exam(s): CT C SPINE EXAM: CT Cervical Spine Without Intravenous Contrast CLINICAL HISTORY: Reason for exam: Left neck swelling, hx mass and trac.. TECHNIQUE: Axial computed tomography images of the cervical spine without intravenous contrast. CTDI is 28.14 mGy and DLP is 3137.05 mGy-cm. Automated exposure control was utilized for the study. A dose lowering technique was utilized adhering to the principles of ALARA. COMPARISON: No relevant prior studies available. FINDINGS: Vertebrae: Slight straightening of the normal cervical curvature may be due to positioning or spasm. No acute fracture or subluxation is seen. Soft tissues: Chronic appearing calcification along the posterior soft tissues. Mastoid air cells: Partial opacification of the mastoid air cells bilaterally suggesting prior mastoiditis. Pleural space: Partial visualization of small right pleural effusion. DISCS/SPINAL CANAL/NEURAL FORAMINA: C2-C3: Unremarkable. No significant disc disease. No stenosis. C3-C4: Unremarkable. No significant disc disease. No stenosis. C4-C5: Unremarkable. No significant disc disease. No stenosis. C5-C6: Mild degenerative disc disease. No stenosis. C6-C7: Mild degenerative disc disease. No stenosis. C7-T1: Unremarkable. No significant disc disease. No stenosis. IMPRESSION: Slight straightening of the normal cervical curvature may be due to positioning or spasm. No acute fracture or subluxation is seen. Mild degenerative changes in the mid cervical spine. No spinal stenosis is seen. Electronically signed by: Luis Lewis MD 04/30/23 02:12 AM Chest X-Ray 04/29/23 21:26 SINGLE VIEW CHEST CLINICAL HISTORY: Sepsis. Recent heart surgery. FINDINGS: An AP, portable, upright chest radiograph is obtained. No prior studies are available for comparison at the time of dictation. The patient is status post midline sternotomy. The heart is enlarged. The pulmonary vasculature is noncongested. There are right larger than left pleural effusions with dependent atelectasis. No pneumothorax is seen. The bony thorax is grossly intact. IMPRESSION: 1. Cardiomegaly without radiographic evidence of congestive failure. 2. Right larger than left pleural effusions with dependent atelectasis. ACT 112: Negative or not required by law. Electronically signed by: Ayan Saxena M.D. 04/29/2023 11:[address] 04/29/23 21:27 Exam(s): CT CHEST Without Contrast EXAM: CT Chest Without Intravenous Contrast CLINICAL HISTORY: Reason for exam: neck/chest mass hx. TECHNIQUE: Axial computed tomography images of the chest without intravenous contrast. CTDI is 27.46 mGy and DLP is 3137.05 mGy-cm. Automated exposure control was utilized for the study. A dose lowering technique was utilized adhering to the principles of ALARA. COMPARISON: No relevant prior studies available. FINDINGS: Trachea: Previous tracheotomy. Lungs: There are mild emphysematous changes in the lungs bilaterally, greatest in the upper lobes. Small areas of linear scarring or subsegmental atelectasis are present inferiorly. Pleural space: There are loculated appearing bilateral pleural fluid collections measuring 4.5 cm thick on the right and 3.7 cm on the left with adjacent atelectasis. No pneumothorax. Heart: Unremarkable. No cardiomegaly. No significant pericardial effusion. No significant coronary artery calcifications. Bones/joints: Previous sternotomy. Mild degenerative changes in the spine. No acute fracture or subluxation is seen. Soft tissues: Unremarkable. Vasculature: The thoracic aorta is nondilated. This is a noncontrast study. Lymph nodes: Unremarkable. No enlarged lymph nodes. IMPRESSION: There are loculated appearing bilateral pleural fluid collections measuring 4.5 cm thick on the right and 3.7 cm on the left with adjacent atelectasis. Electronically signed by: Luis Lewis MD 04/30/23 02:14 AM Abdomen/Pelvis CT 04/29/23 22:06 Exam(s): CT ABDOMEN + PELVIS Without Contrast EXAM: CT Abdomen and Pelvis Without Intravenous Contrast CLINICAL HISTORY: Reason for exam: pain. TECHNIQUE: Axial computed tomography images of the abdomen and pelvis without intravenous contrast. CTDI is 28.14 mGy and DLP is 3137.05 mGy-cm. Automated exposure control was utilized for the study. A dose lowering technique was utilized adhering to the principles of ALARA. COMPARISON: No relevant prior studies available. FINDINGS: Lung bases: Unremarkable. No mass. No consolidation. ABDOMEN: Liver: The liver is mildly enlarged measuring 20 cm craniocaudad. No focal liver lesion is seen. Gallbladder and bile ducts: Unremarkable. No calcified stones. No ductal dilation. Pancreas: Unremarkable. No ductal dilation. Spleen: Unremarkable. No splenomegaly. Adrenals: Unremarkable. No mass. Kidneys and ureters: The kidneys are unremarkable. No hydronephrosis or ureterolithiasis is seen. Stomach and bowel: Unremarkable. No obstruction. No mucosal thickening. PELVIS: Appendix: The appendix is normal. Bowel loops are nondilated. No acute inflammatory changes are seen involving the bowel. Bladder: Unremarkable. No stones. Reproductive: Unremarkable as visualized. ABDOMEN and PELVIS: Intraperitoneal space: Unremarkable. No free air. No significant fluid collection. Bones/joints: Mild degenerative changes in the spine. No acute fracture or subluxation is seen. Soft tissues: Unremarkable. Vasculature: Unremarkable. No abdominal aortic aneurysm. Lymph nodes: Unremarkable. No enlarged lymph nodes. IMPRESSION: 1. The kidneys are unremarkable. No hydronephrosis or ureterolithiasis is seen. 2. The appendix is normal. Bowel loops are nondilated. No acute inflammatory changes are seen involving the bowel. Electronically signed by: Luis Lewis MD 04/30/23 02:[address] 04/30/23 12:18 CT SCAN OF THE NECK WITHOUT IV CONTRAST CLINICAL HISTORY: Left-sided neck pain. History of previous neck surgeries/abscess. COMPARISON STUDY: CT of the cervical spine performed earlier the same day 04/30/2023. TECHNIQUE: Unenhanced CT scan of the soft tissues of the neck was performed from the skull base to the upper chest. Images are reviewed in the axial, sagittal, and coronal planes. IV contrast was not administered due to reported history of contrast allergy. Note that the examination is significantly suboptimal without IV contrast. A dose lowering technique was utilized adhering to the principles of ALARA. FINDINGS: Pharynx: There is evidence of previous tracheostomy. The unenhanced pharyngeal soft tissues are grossly unremarkable. The pharyngeal airway is widely patent. There is no evidence of mass lesion or fluid collection on this unenhanced examination. The vocal cords are symmetric. The parapharyngeal fat is well maintained. The prevertebral/retropharyngeal soft tissues are within normal limits. Lymphadenopathy: Prominent cervical chain lymph nodes are likely reactive. A registration representative left cervical chain node on image #192 measures 1.7 x 0.8 cm. Thyroid: Normal in size and attenuation. Salivary glands: The parotid and right submandibular glands are within normal limits. No calcified sialoliths are identified. There is soft tissue thickening and mild infiltration seen around the left submandibular gland. Soft tissue again extends imaging of the soft tissues inferior to the gland. Brain parenchyma: The visualized brain parenchyma at the skull base is normal in appearance. Vascular structures: Unremarkable. Skeletal structures: Imaged portions of the calvarium at the skull base are within normal limits. The cervical spine appears intact. The patient is status post midline sternotomy. No lytic or blastic lesion is seen. Orbits: The bony orbits are intact. Orbital contents are normal as visualized. Sinuses and mastoids: There is mild mucosal thickening in the right maxillary antrum. The remaining paranasal sinuses are clear. There are left larger than right mastoid effusions. Lung apices: Emphysematous change is noted at the apices. Visualized apical lung parenchyma is otherwise clear. IMPRESSION: 1. No acute inflammatory process is identified involving the pharyngeal soft tissues and there is no evidence of abscess on this unenhanced examination. 2. There is soft tissue thickening and infiltration identified around the left submandibular gland. No calcified sialoliths are identified, and this could represent a nonspecific infectious/inflammatory sialoadenitis or possibly vascular compromise of the gland. Clinical correlation will be essential. 3. There is evidence of previous tracheostomy. 4. Emphysema. 5. Bilateral mastoid effusions. 6. Additional findings as above. ACT 112: Negative or not required by law. Electronically signed by: Ayan Saxena M.D. 04/30/2023 2:54 PM I & O Totals 24 Hours 04/29/23 04/30/23 05/01/23 06:59 06:59 06:59 Intake Total 1300 / 1300 Output Total 402 / 402 Balance 1300 / 1300 -402 / -402 Cumulative 04/29/23 21:05 thru 04/30/23 15:13 Intake Total 1300 Output Total 402 Balance 898 RT Ventilator Mngmt (Last Documented) Ventilator Ordered Settings Respiratory Rate 18 04/30/23 13:28 Ventilator - PT Measurements Respiratory Rate 18 PG Care Time/CCT Total # of Minutes Spent Total Time Spent with Patient: Total time spent is greater than 50% in coordination of care (as documented) at patient's floor/unit and/or counseling patient: Coding Level of Care Code 99356 IN/OBS CONSULT LVL 5,80M Diagnoses Pleural effusion on left J90 Pleural effusion on right J90
[2023-04-30] MEDS ORDERED: LIDOCAINE 1% LOCAL 20 ML VIAL ONE (17:06)
--- NOTE | 2023-04-30 17:41 | Procedure Note ---
Procedure Note Date of Service April 30, 2023 Note Procedure: 14 [place] pigtail catheter placement, right Indication: Empyema Consent risk and benefits were discussed with the patient. He agreed. Written consent was obtained with signatures from the patient's mother at the patient's request Hand Bander Dr. Alcala Estimated blood loss: Less than 5 mL Anesthesia: 10 mL 1% lidocaine without epinephrine locally. Procedure: The patient been admitted with bilateral pleural effusions with split pleural sign concerning for potential empyema. The patient was placed in a upright seated position. Limited thoracic ultrasound was performed bilaterally which revealed moderate-sized pockets of fluid in both the right and left hemithorax. Site appropriate for thoracentesis on the right was identified and marked. Skin was anesthetized using lidocaine. The muscle and deeper soft tissues were anesthetized using a finder needle. I was unable to aspirate fluid with the finder needle. A small skin osmin was made with a scalpel. An over the needle thoracentesis catheter was then advanced on a similar line. I was able to access the fluid collection and astrid pus was aspirated. 10 cc was collected and inoculated into culture bottles at the bedside. At that point time we elected to proceed with 14 [place] skater locking pigtail catheter placement. The thoracentesis catheter was withdrawn. An 18- gauge needle was then advanced on a similar line until I was able to aspirate p urulent material. The syringe was detached from the needle leaving the needle in place. A wire was passed through the needle into the pleural space. Once the wire was well within the pleural space, the needle was withdrawn leaving the wire in place. A 14 [place] dilator was then passed over the wire to dilate the skin and soft tissues. This passed with ease. The dilator was removed leaving the wire in place. A 14 [place] pigtail catheter was then loaded on a straightening catheter and advanced over the wire into the pleural space. The straightening catheter and wire were removed leaving the pigtail catheter in place. The locking mechanism was secured. A three-way stopcock was attached. The tube was attached to suction with on the Pleur-evac system with return of about 160 cc of purulent material. A skater catheter fixation system was attached to the chest wall and the catheter secured. Catheter was attached to suction at 20 cm of water. Post procedure chest x-ray is pending. The patient tolerated the procedure well. Will initiate mist 2 protocol and follow daily chest x-ray as well as culture data. Coding CPT Codes Pulmonary/Thoracic - Pulmonary and Thoracic: 98870 Pleural drainage w/imaging ([id number]) Pulmonary/Thoracic - Pulmonary and Thoracic: 60481 [place] chest fibrin initial day ([id number]) [facility] [place] Procedure Codes (Charges) Pulmonary/Thoracic Procedure 1: Pulmonary and Thoracic: 79255 Pleural drainage w/imaging Procedure 2: Pulmonary and Thoracic: 36950 [place] chest fibrin initial day
--- NOTE | 2023-04-30 17:43 | Procedure Note ---
Procedure Note Date of Service April 30, 2023 Note Procedure: 14 Taiwanese pigtail catheter placement, left Indication: Empyema Consent risk and benefits were discussed with the patient. He agreed. Written consent was obtained with signatures from the patient's mother at the patient's request [employer] Engineer Dr. Alcala Estimated blood loss: Less than 5 mL Anesthesia: 10 mL 1% lidocaine without epinephrine locally. Procedure: The patient been admitted with bilateral pleural effusions with split pleural sign concerning for potential empyema. The patient was placed in a upright seated position. Limited thoracic ultrasound was performed bilaterally which revealed moderate-sized pockets of fluid in both the right and left hemithorax. Site appropriate for thoracentesis on the left was identified and marked. Skin was anesthetized using lidocaine. The muscle and deeper soft tissues were anesthetized using a finder needle. I was unable to aspirate fluid with the finder needle. A small skin osmin was made with a scalpel. An 18-gauge needle was then advanced on a similar line until I was able to aspirate purulent material. The syringe was detached from the needle leaving the needle in place. A wire was passed through the needle into the pleural space. Once the wire was well within the pleural space, the needle was withdrawn leaving the wire in place. A 14 Taiwanese dilator was then passed over the wire to dilate the skin and soft tissues. This passed with ease. The dilator was removed leaving the wire in place. A 14 Taiwanese pigtail catheter was then loaded on a straightening catheter and advanced over the wire into the pleural space. The straightening catheter and wire were removed leaving the pigtail catheter in place. The locking mechanism was secured. A three-way stopcock was attached. The tube was attached to suction with on the Pleur-evac system with return of about 50 cc of purulent material. A skater catheter fixation system was attached to the chest wall and the catheter secured. Catheter was attached to suction at 20 cm of water. Post procedure chest x-ray is pending. Cultures were inoculated at bedside The patient tolerated the procedure well. Will initiate mist 2 protocol and follow daily chest x-ray as well as culture data. Coding CPT Codes Pulmonary/Thoracic - Pulmonary and Thoracic: 29914 Pleural drainage w/imaging ([id number]) Pulmonary/Thoracic - Pulmonary and Thoracic: 29014 Lyse chest fibrin initial day ([id number]) [facility] Procedure Codes (Charges) Pulmonary/Thoracic Procedure 1: Pulmonary and Thoracic: 87231 Pleural drainage w/imaging Procedure 2: Pulmonary and Thoracic: 46225 Lyse chest fibrin initial day
[2023-04-30] MEDS: oxyCODONE HCL IR 5 MG TAB (IMMEDIATE RELEASE) PO PRN ×3 (17:53→22:44)
--- NOTE | 2023-04-30 17:59 | XRay Report ---
SINGLE VIEW CHEST CLINICAL HISTORY: Chest tube placement. FINDINGS: An AP, portable, upright chest radiograph is compared to study dated 04/29/2023 and correlate d with chest CT performed earlier the same day 04/30/2023. The patient is status post midline sternotom y. The heart is top normal for projection. Bilateral chest tubes have been placed. No pneumothorax is seen. There are right larger than left residual pleural effusions with right basilar consolidation. Pleural effusions have decreased in size from previous. Emphysema and chronic interstitial thickening is previous. The bony thorax is grossly intact. IMPRESSION: 1. Bilateral chest tubes have been placed. No pneumothorax is identified. 2. Right larger than left pleural effusions have decreased in size from today's earlier examination. 3. Emphysema. ACT 112: Negative or not required by law. Electronically signed by: Ayan Saxena M.D. 04/30/2023 5:57 PM
[2023-04-30] MEDS: ALTEPLASE, RECOMBINANT 10 MG in SYRINGE 50 ML IPL SCH ×2 (20:17→20:18)
[2023-04-30] MEDS: DORNASE ALFA 5 ML in SYRINGE 25 ML IPL SCH (22:12)
[2023-05-01] MEDS: oxyCODONE HCL IR 5 MG TAB (IMMEDIATE RELEASE) PO PRN ×4 (04:07→20:08)
[2023-05-01] MEDS ORDERED: Nursing to Pharmacy Communication SCH (05:00)
[2023-05-01] MEDS: diphenhydrAMINE HCL 25 MG/10 ML UDC PO PRN ×2 (06:09→18:23)
[2023-05-01] MEDS: VANCOMYCIN HCL 1,500 MG in SODIUM CHLORIDE 0.9% 500 ML IV SCH ×2 (06:10→18:30)
--- NOTE | 2023-05-01 07:36 | Pulmonology Progress Note ---
Date of Service May 01, 2023 Assessment & Plan (1) Pleural effusion on left: (2) Pleural effusion on right: Plan Impression: 42-year-old male with extensive neck infection and what sounds like mediastinitis. Unclear if this represented LeMiere syndrome. He was ventilator dependent but has now been decannulated. He was admitted to the hospital with left neck swelling and pain. ENT has evaluated the patient. He has bilateral empyema and is status post pigtail catheter placement. Recommendations: 1. Bilateral empyema: Status post 14 [place] pigtail catheter placement bilaterally. The x-ray appears better. Output is slowly decreasing. Currently treating bilaterally with mist 2 protocol. We will complete protocol and follow-up imaging. Cultures pending. Gram stain shows no organisms but many white blood cells. We will likely plan on repeating the CT scan in 24 to 48 hours prior to removal of the tubes. Currently day #2 vancomycin ertapenem. ID consultation pending. 2. Recommend the primary service discussed the case with the thoracic surgery team at [facility] where he was cared for previously given the complicated nature of his intrathoracic pathology. Records should be obtained including imaging studies forwarded into our system for review. 3. Pain control adequate. The patient states he does not want anything stronger than what he is getting now The above recommendations and plan were discussed with the patient at bedside. Questions were answered to the best my ability. Admission and Anticipated Discharge Date Admission Date: April 30, 2023 Subjective Patient seen and examined. EMR reviewed. Patient states he is doing okay. He is having some slight pain at the pigtail insertion sites however this is controlled with his oral medication. Is not reporting any cough or sputum production. No fevers chills night sweats or other constitutional symptoms. Overall he feels improved. He states the swelling in his neck feels better. Review of Systems Review of Systems: All systems reviewed & are unremarkable except as noted in Subjective Physical Exam Constitutional: WD/WN, vitals as above Neck: trachea midline, no thyromegaly Respiratory: no respiratory distress, no labored breathing, no cough and not tachypneic Auscultation: + diminished lung sounds Cardiovascular: RRR, no murmur, no edema Gastrointestinal (Abdomen): normal bowel sounds, soft, nontender, no hepatosplenomegaly Musculoskeletal: Extremities: extremities normal to inspection Skin: no rashes, warm and dry Lymphatic: no cervical lymphadenopathy Results & Data Results & Data Vital Signs (Past 12 Hours) Vital Signs Temp Pulse Resp BP Pulse Ox O2 Del Method 04/30/23 20:18 Room Air 05/01/23 00:39 95 H 110/65 04/30/23 20:52 36.6 C 105 H 18 112/65 95 Room Air Critical Care Results & Data Vital Signs (Past 12 Hours) Vital Signs Temp Pulse Resp BP Pulse Ox O2 Del Method 04/30/23 20:18 Room Air 05/01/23 00:39 95 H 110/65 04/30/23 20:52 36.6 C 105 H 18 112/65 95 Room Air Lab & Micro Results (Past 24 Hours) Hgb 10.9 g/dl (14.0-18.0) L 04/30/23 Hct 33.5 % (42.0-52.0) L 04/30/23 No Data to Display No Data to Display Microbiology 04/29/23 22:52 Aerobic Blood Culture - Preliminary Blood No growth in Aerobic bottle after 24 hours. Anaerobic Blood Culture - Preliminary No growth in Anaerobic bottle after 24 hours. 04/29/23 22:59 Aerobic Blood Culture - Preliminary Blood No growth in Aerobic bottle after 24 hours. Anaerobic Blood Culture - Preliminary No growth in Anaerobic bottle after 24 hours. 04/30/23 20:45 Gram Stain - Final Pleural Fluid,Left 04/30/23 20:45 Gram Stain - Final Pleural Fluid,Right Diagnostic Findings (Past 24 Hours) Soft Tissue Neck CT 04/30/23 12:18 CT SCAN OF THE NECK WITHOUT IV CONTRAST CLINICAL HISTORY: Left-sided neck pain. History of previous neck surgeries/abscess. COMPARISON STUDY: CT of the cervical spine performed earlier the same day 04/30/2023. TECHNIQUE: Unenhanced CT scan of the soft tissues of the neck was performed from the skull base to the upper chest. Images are reviewed in the axial, sagittal, and coronal planes. IV contrast was not administered due to reported history of contrast allergy. Note that the examination is significantly suboptimal without IV contrast. A dose lowering technique was utilized adhering to the principles of ALARA. FINDINGS: Pharynx: There is evidence of previous tracheostomy. The unenhanced pharyngeal soft tissues are grossly unremarkable. The pharyngeal airway is widely patent. There is no evidence of mass lesion or fluid collection on this unenhanced examination. The vocal cords are symmetric. The parapharyngeal fat is well maintained. The prevertebral/retropharyngeal soft tissues are within normal limits. Lymphadenopathy: Prominent cervical chain lymph nodes are likely reactive. A sales representative groceries left cervical chain node on image #192 measures 1.7 x 0.8 cm. Thyroid: Normal in size and attenuation. Salivary glands: The parotid and right submandibular glands are within normal limits. No calcified sialoliths are identified. There is soft tissue thickening and mild infiltration seen around the left submandibular gland. Soft tissue again extends imaging of the soft tissues inferior to the gland. Brain parenchyma: The visualized brain parenchyma at the skull base is normal in appearance. Vascular structures: Unremarkable. Skeletal structures: Imaged portions of the calvarium at the skull base are within normal limits. The cervical spine appears intact. The patient is status post midline sternotomy. No lytic or blastic lesion is seen. Orbits: The bony orbits are intact. Orbital contents are normal as visualized. Sinuses and mastoids: There is mild mucosal thickening in the right maxillary antrum. The remaining paranasal sinuses are clear. There are left larger than right mastoid effusions. Lung apices: Emphysematous change is noted at the apices. Visualized apical lung parenchyma is otherwise clear. IMPRESSION: 1. No acute inflammatory process is identified involving the pharyngeal soft tissues and there is no evidence of abscess on this unenhanced examination. 2. There is soft tissue thickening and infiltration identified around the left submandibular gland. No calcified sialoliths are identified, and this could represent a nonspecific infectious/inflammatory sialoadenitis or possibly vascu lar compromise of the gland. Clinical correlation will be essential. 3. There is evidence of previous tracheostomy. 4. Emphysema. 5. Bilateral mastoid effusions. 6. Additional findings as above. ACT 112: Negative or not required by law. Electronically signed by: Ayan Saxena M.D. 04/30/2023 2:54 PM Chest X-Ray 04/30/23 17:32 SINGLE VIEW CHEST CLINICAL HISTORY: Chest tube placement. FINDINGS: An AP, portable, upright chest radiograph is compared to study dated 04/29/2023 and correlated with chest CT performed earlier the same day 04/30/2023. The patient is status post midline sternotomy. The heart is top normal for projection. Bilateral chest tubes have been placed. No pneumothorax is seen. There are right larger than left residual pleural effusions with right basilar consolidation. Pleural effusions have decreased in size from previous. Emphysema and chronic interstitial thickening is previous. The bony thorax is grossly intact. IMPRESSION: 1. Bilateral chest tubes have been placed. No pneumothorax is identified. 2. Right larger than left pleural effusions have decreased in size from today's earlier examination. 3. Emphysema. ACT 112: Negative or not required by law. Electronically signed by: Ayan Saxena M.D. 04/30/2023 5:57 PM I & O Totals 24 Hours 04/30/23 05/01/23 05/02/23 06:59 06:59 06:59 Intake Total 1300 / 1300 530 / 530 Output Total 752 / 752 Balance 1300 / 1300 -222 / -222 Cumulative 04/29/23 21:05 thru 05/01/23 05:32 Intake Total 1830 Output Total 752 Balance 1078 RT Ventilator Mngmt (Last Documented) Ventilator Ordered Settings Respiratory Rate 18 04/30/23 20:52 Ventilator - PT Measurements Respiratory Rate 18 PG Care Time/CCT Total # of Minutes Spent Total Time Spent with Patient: Total time spent is greater than 50% in coordination of care (as documented) at patient's floor/unit and/or counseling patient: Coding Level of Care Code 45808 SUB INP/OBS CARE 2/35MIN Diagnoses Pleural effusion on left J90 Pleural effusion on right J90
--- NOTE | 2023-05-01 08:01 | XRay Report ---
XR chest 1V portable HISTORY: Chest tube ? MIST 2 protocol COMPARISON: Chest 04/30/2023. FINDINGS: Bilateral chest tubes remain in place. No pneumothorax. Trace pleural effusions have improv ed. Hazy appearance to the right midlung zone has also improved and may represent decrease in size of the pleural effusion. No new focal lung consolidations identified. No evidence for pulmonary edema. There are poststernotomy changes. The heart is normal in size. IMPRESSION: 1. Bilateral chest tubes remain in place. No pneumothorax. 2. Continued decrease in size in the pleural effusions. ACT 112: Negative or not required by law. Electronically signed by: Isaiah Barreto M.D. 05/01/2023 8:00 AM
[2023-05-01] MEDS: ALTEPLASE, RECOMBINANT 10 MG in SYRINGE 50 ML IPL SCH ×4 (08:32→20:34)
[2023-05-01 08:50] LABS: Creatinine Clr Calc Pharmacy 192.9 ml/min; Est GFR (African American) 140.1 ml/min; Est GFR (Non-African American) 120.8 ml/min
[2023-05-01] MEDS: TAMSULOSIN HCL 0.4 MG CAP PO SCH (08:58)
[2023-05-01] MEDS: ARIPiprazole 5 MG TAB PO SCH ×2 (08:58→21:48)
[2023-05-01] MEDS: FAMOTIDINE 20 MG TAB PO SCH ×2 (08:58→21:48)
[2023-05-01] MEDS: AMIODARONE 200 MG TAB PO SCH (08:58)
[2023-05-01] MEDS: ESCITALOPRAM OXALATE 10 MG TAB PO SCH (08:58)
[2023-05-01] MEDS: GABAPENTIN 100 MG CAP PO SCH ×2 (08:59→20:29)
[2023-05-01] MEDS: DOCUSATE SODIUM 100 MG CAP PO SCH ×2 (08:59→20:33)
[2023-05-01] MEDS: ENOXAPARIN INJ 40 MG/0.4 ML SYR SQ SCH (09:00)
--- NOTE | 2023-05-01 09:17 | Ears,Nose,Throat Progress Note ---
Date of Service May 01, 2023 Assessment & Plan (1) Cellulitis of neck: (2) Sialoadenitis of submandibular gland: Plan 42yM with recent complicated L deep space neck infection requiring multiple I+Ds, tracheostomy since decannulated now with recurrent L submandibular swelling. Exam shows induration of L submandibular region consistent with sialoadenitis. CT neck without contrast (patient adamantly refusing contrasted imaging despite counseling) with hypodense L SMG with surrounding inflammation. CT findings discussed with radiology, no sign of abscess but consistent with necrosis. Clinically he is stable without airway edema, improving on IV abx. -Continue IV abx, consider ID consult for input -Without obvious abscess on exam/imaging and given patient is clinically well appearing/improving without airway compromise, no plan for urgent surgery -OK for PO this AM, keep NPO at OR for reassessment tomorrow -If patient worsens clinically, would recommend transfer to tertiary care center due to complex history and anticipated challenge of further procedures -Hydration, sialogogues, warm compresses, massage of L SMG -Will continue to follow, please call with questions Admission and Anticipated Discharge Date Admission Date: April 30, 2023 Subjective Patient feels neck is improved this AM. Less swelling/induration. No pain, mealtime swelling, throat pain, dysphagia, dysphonia, dyspnea/stridor. No trismus. CT neck without contrast per my read with inflammation/stranding around L SMG, no evidence of stone or obvious discrete abscess, although interpretation is limited without contrast. Underwent pigtail x2 with pulmonology. Physical Exam Physical Exam: General: No acute distress, nonlabored respirations. Bilateral pigtails in place. Face: normal facial motion Eyes: Extraocular motion is intact. Normal sclera and conjunctiva Nose: no external deformity, nares patent. No rhinorrhea or epistaxis. Oral cavity: No trismus. Moderate to poor dentition. No masses or lesions lips, gingiva, GBS, oral tongue, FOM, RMT. FOM soft, no stone or edema. Firm L SMG to bimanual palpation. Oropharynx: clear Neck: well healed L neck incision, induration over L SMG, slightly less than previous. No significant erythema of overlying skin Bilateral parotid and R SMG wnl 2cm firm L SMG with surrounding induration Tracheostoma with dressing in place Results & Data Vital Signs (Past 12 Hours) Vital Signs Temp Pulse Resp BP Pulse Ox O2 Del Method 05/01/23 07:23 37.1 C 93 H 16 110/69 97 Room Air 05/01/23 00:39 95 H 110/65 PG Care Time/CCT Total # of Minutes Spent Total Time Spent with Patient: Total time spent is greater than 50% in coordination of care (as documented) at patient's floor/unit and/or counseling patient: Coding Level of Care Code 37299 SUB INP/OBS CARE 2/35MIN Diagnoses Cellulitis of neck L03.221 Sialoadenitis of submandibular gland K11.20
[2023-05-01] MEDS: DORNASE ALFA 5 ML in SYRINGE 25 ML IPL SCH ×3 (09:46→21:50)
[2023-05-01] MEDS: ERTAPENEM SODIUM 1,000 MG in SYRINGE 0 ML IV SCH (10:31)
[2023-05-01] MEDS ORDERED: VANCOMYCIN LEVEL ONE ×2 (11:00→17:20)
--- NOTE | 2023-05-01 16:50 | Hospitalist Progress Note ---
Date of Service May 01, 2023 Assessment & Plan (1) Cellulitis of neck: Plan 42-year-old man with PMH of HTN, PAF, anxiety/mood disorder, peritonsillar abscess with rare complication in the form of mediastinal abscesses that required surgery with sternotomy and thoracotomy along with decortication of the right lung/tracheostomy tube placement who was on prolonged antibiotic therapy which got discontinued about a week ago while at LTAC facility per patient presented to the ED 04/30 with complaint of left-sided neck swelling with some discomfort similar to episode from a few months ago leading to peritonsillar abscess/complications [see above]. He is being managed for the following: Left submandibular cellulitis History of complicated Left peritonsillar abscess [see above] Patient presents with left-sided neck swelling and discomfort Was recently weaned off of prolonged course of antibiotic at the LTAC facility. Concern of premature termination of antibiotic therapy at LTAC facility per family member. Patient adamantly refused IV contrast use due to allergic reaction in the past despite various counseling/was offered options to use steroid and Benadryl to alleviate allergic reaction. Admitting C-spine CT and CTAP with no acute finding. Admitting CT soft tissue neck suggestive of soft tissue thickening and infiltration around the left submandibular gland and bilateral mastoid effusions. Admitting procalcitonin negative. Patient was started on vancomycin and ertapenem, continue. ENT evaluated, if patient worsens clinically recommends referral to tertiary center. N.p.o. midnight again for tomorrow morning assessment. Clinically induration noted in the left submandibular area, no tenderness, some swelling noted. Still about the same per my exam. Patient denies any difficulty swallowing/difficulty breathing/pain. Infectious disease consult placed. Awaiting recommendation. Called [facility], Patient accepted for transfer, accepting physician is Dr. Marilyn Fields. Bilateral loculated pleural effusion Bilateral empyema Admitting CT chest with bilateral loculated pleural effusion right [4.5 cm] greater than left [3.7 cm] Patient saturating on room air, hemodynamically stable. Pulmonology consult. Appreciate recommendation. Status post bilateral pigtail catheter placement 04/30. Follow pleural fluid cultures. Continue with antibiotics [see above] Prediabetes: A1c of 5.7, repeat A1c in 3 months, encouraged lifestyle modification. Other chronic medical conditions: Continue with/resume home meds as and when able. HTN, BP on the lower side possible CHF as per patient, patient on the dry side PAF, patient NSR, patient not on anticoagulation anxiety/mood disorder, stable history of prolonged intubation GERD, stable on H2 beverly past tobacco abuse DVT prophylaxis. Lovenox subcu Full code Patient mother Ms. Deb Cerda, contact #[phone]. Disposition: Patient accepted for transfer to [facility]. Accepting physician is Dr. Marilyn Fields. Admission and Anticipated Discharge Date Admission Date: April 30, 2023 Subjective Patient seen and examined at bedside. Patient lying in bed, on room air, not in any acute distress. Patient reports improving swelling on the left neck, submandibular induration remains about the same as per my exam. Patient did get pigtail catheter bilateral thorax yesterday. Patient reports feeling better today with improved breathing. Denies any other complaints. Physical Exam Physical Exam: GENERAL: Alert and oriented x3. NAD, on RA. HEENT: No pallor, no icterus. Pupils equal, round and reactive to light. Oral mucosa moist. Left submandibular induration noted. Previous tracheostomy site- healing . Sternotomy wound -healing. NECK: No JVD, no neck masses. HEART: S1 and S2 heard. Regular rate and rhythm. No murmur, no gallop. RESPIRATORY SYSTEM: Normal AP diameter. No accessory muscle use. No wheezing, no crackles. Bilateral thorax pigtail catheter. Decreased breath sound. ABDOMEN: Soft, bowel sounds present, nontender, no distention. CENTRAL NERVOUS SYSTEM: No facial droop. Speech is clear. Obeys simple commands. Moves extremities. EXTREMITIES: No edema, no erythema seen. Results & Data Results & Data Vital Signs (Past 12 Hours) Vital Signs Temp Pulse Resp BP Pulse Ox O2 Del Method 05/01/23 15:57 37.0 C 92 H 16 105/67 98 Room Air 05/01/23 08:00 Room Air 05/01/23 07:23 37.1 C 93 H 16 110/69 97 Room Air
[2023-05-02] MEDS: oxyCODONE HCL IR 5 MG TAB (IMMEDIATE RELEASE) PO PRN ×2 (02:37→07:39)
[2023-05-02] MEDS: VANCOMYCIN HCL 1,500 MG in SODIUM CHLORIDE 0.9% 500 ML IV SCH (05:43)
[2023-05-02] MEDS: diphenhydrAMINE HCL 25 MG/10 ML UDC PO PRN (06:17)
[2023-05-02] MEDS: ARIPiprazole 5 MG TAB PO SCH (07:40)
[2023-05-02] MEDS: FAMOTIDINE 20 MG TAB PO SCH (07:40)
[2023-05-02] MEDS: AMIODARONE 200 MG TAB PO SCH (07:41)
[2023-05-02] MEDS: ESCITALOPRAM OXALATE 10 MG TAB PO SCH (07:41)
[2023-05-02] MEDS: TAMSULOSIN HCL 0.4 MG CAP PO SCH (07:41)
[2023-05-02] MEDS: DOCUSATE SODIUM 100 MG CAP PO SCH (07:42)
[2023-05-02] MEDS: ERTAPENEM SODIUM 1,000 MG in SYRINGE 0 ML IV SCH (07:42)
[2023-05-02] MEDS: GABAPENTIN 100 MG CAP PO SCH (07:42)
[2023-05-02] MEDS: ENOXAPARIN INJ 40 MG/0.4 ML SYR SQ SCH (07:42)
--- NOTE | 2023-05-02 07:55 | XRay Report ---
XR chest 1V portable HISTORY: Chest tube ? MIST 2 protocol COMPARISON: Chest 05/01/2023. FINDINGS: Bilateral chest tubes remain unchanged in position. Small bilateral pleural effusions persi st. The heart remains mildly enlarged. No evidence for pulmonary edema. No new focal lung consolidati ons. Poststernotomy changes are again noted. No pneumothorax. IMPRESSION: 1. Bilateral chest tubes remain in place. No pneumothorax. 2. Small bilateral pleural effusions persist. ACT 112: Negative or not required by law. Electronically signed by: Isaiah Barreto M.D. 05/02/2023 7:54 AM
--- NOTE | 2023-05-02 11:59 | Discharge Summary ---
Date of Service May 02, 2023 Admission HPI Per Admitting Provider History obtained from patient, family, and records. Medical history significant for HTN, possible CHF as per patient, PAF, anxiety/mood disorder, left peritonsillar abscess with secondary neck abscess and pleural fluid collections (Beta-hemolytic streptococcus, Group G) status post drainage, history of prolonged intubation, GERD, past tobacco abuse. Patient admitted at [facility] from March 03 to 2022 after transfer from [facility] for strep throat, left-sided large multilocular peritonsillar abscess. Subsequent direct laryngoscopy and incision and drainage of left peritonsillar abscess by ENT specialist at [facility]. Unable to extubate patient postop due to significant airway swelling. Subsequent swelling on the left side of the face and submental area noted. Respiratory cultures grew beta-hemolytic strep, group G. Intraoperative cultures gram-negative rods, gram-positive cocci in chains and few gram-positive rods. Soft tissue neck CT showed pansinusitis and marked progression of inflammatory infectious fluid stranding and induration of the left neck extending from the palatine tonsil to involve the floor of the mouth, left neck and left muscles of mastication with subcutaneous stranding extending into the anterior upper chest and left shoulder. ENT surgeon recommended transfer to tertiary care center need for extensive surgery and multidisciplinary approach as per documentation. Patient transferred by helicopter to [facility]. Patient confined at [facility] ([facility]) for about a month as per patient's family. Multiple procedures draining neck infection and secondary lung infection as per patient's mother. Prolonged intubation (about 40 days from time of surgery at [facility]) requiring tracheostomy for ventilation dependent respiratory failure. Patient does not recall events from surgery at [facility] and [facility] confinement. Patient supposed to have follow-up appointments w [facility] specialists as per mother. Patient discharged to [facility] in [place], [place] 2 weeks ago on extended antibiotic regimen as per [facility] ID specialist recommendations. Patient eventually weaned off ventilator and tube feeds at LT[facility]. Oral feeding started at LTAC as per patient last week. Patient antibiotics eventually discontinued at LTAC facility due to concern for hypersensitivity reaction. Patient mother does not think [facility] ID specialist consulted about decision to stop antibiotics by LTAC. Last antibiotic dose was a few days ago prior to transfer to local [facility] rehab facility. CT of the neck done prior to discontinuing antibiotics as per patient. Patient transferred to [facility] rehab facility yesterday. Last night, patient noted left-sided neck swelling with some discomfort similar to episode from a few months ago. No chest pain, no SOB, no cough symptoms. No sore throat symptoms. No tooth ache. No fever, no chills. Patient brought to ER for evaluation. Vancomycin, ciprofloxacin and Flagyl administered at the ER. 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 Admission Exam Per Admitting Provider GENERAL: Slightly uncomfortable, slightly anxious, obese, pleasant no respiratory distress SKIN: Normal color, warm HEENT: [place] palpebral conjunctivae, no ptosis, dry buccal mucosa, no trismus NECK : Supple, left neck swelling with minimal tenderness CHEST : Decreased breath sounds, no tenderness HEART : RRR, no obvious murmurs ABDOMEN: Some distention, nontender EXTREMITIES : No LE swelling/tenderness, no other conspicuous deformities noted NEUROLOGIC : Coherent, no facial asymmetry, no other gross focality Principal Diagnosis Bilateral empyema Left submandibular cellulitis Discharge Exam GENERAL: Alert and oriented x3. NAD, on RA. HEENT: No pallor, no icterus. Pupils equal, round and reactive to light. Oral mucosa moist. Left submandibular induration noted. Previous tracheostomy site- healing . Sternotomy wound -healing. NECK: No JVD, no neck masses. HEART: S1 and S2 heard. Regular rate and rhythm. No murmur, no gallop. RESPIRATORY SYSTEM: Normal AP diameter. No accessory muscle use. No wheezing, no crackles. Bilateral thorax pigtail catheter. Decreased breath sound. ABDOMEN: Soft, bowel sounds present, nontender, no distention. CENTRAL NERVOUS SYSTEM: No facial droop. Speech is clear. Obeys simple commands. Moves extremities. EXTREMITIES: No edema, no erythema seen. Discharge Data Allergies Allergy/AdvReac Type Severity Reaction Status Date / Time shellfish derived Allergy Severe Anaphylaxis Verified 04/30/23 03:59 penicillin G Allergy Unknown Unknown Verified 04/30/23 07:19 amoxicillin Allergy Unknown Verified 04/30/23 07:19 pecan nut Allergy Unknown Verified 04/30/23 07:19 peanut AdvReac Unknown Unknown Verified 04/30/23 07:19 Consultations 04/30/23 02:32 ED Decision to Admit Stat 04/30/23 04:05 HIM [Consult Health Information Management] Routine 04/30/23 04:52 Consult Otolaryngology (Head and Neck) Routine 04/30/23 12:13 Consult Pulmonology Routine 04/30/23 12:14 Consult Infectious Diseases Routine Ordered Studies 04/29/23 21:26 CT neck [CT cervical spine wo con] Stat 04/29/23 21:27 CT chest diagnostic wo con Stat 04/29/23 22:06 CT abd pelvis wo con Stat 04/30/23 12:18 CT neck soft tissues [CT soft tissue neck wo con] Routine 04/30/23 16:24 sono, invasive monitoring [US point of care ultrasound] Routine Hospital Course (1) Cellulitis of neck: Plan 42-year-old man with PMH of HTN, PAF, anxiety/mood disorder, peritonsillar abscess with rare complication in the form of mediastinal abscesses that required surgery with sternotomy and thoracotomy along with decortication of the right lung/tracheostomy tube placement who was on prolonged antibiotic therapy which got discontinued about a week ago while at LTAC facility per patient presented to the ED 04/30 with complaint of left-sided neck swelling with some discomfort similar to episode from a few months ago leading to peritonsillar abscess/complications [see above]. He was managed for the following: Left submandibular cellulitis History of complicated Left peritonsillar abscess [see above] Patient presents with left-sided neck swelling and discomfort Was recently weaned off of prolonged course of antibiotic at the LTAC facility. Concern of premature termination of antibiotic therapy at LTAC facility per family member. Patient adamantly refused IV contrast use due to allergic reaction in the past despite various counseling/was offered options to use steroid and Benadryl to alleviate allergic reaction. Admitting C-spine CT and CTAP with no acute finding. Admitting CT soft tissue neck suggestive of soft tissue thickening and infiltration around the left submandibular gland and bilateral mastoid effusions. Admitting procalcitonin negative. Patient was started on vancomycin and ertapenem, continue. ENT evaluated, if patient worsens clinically recommends referral to tertiary center. c/w w/ iv atb Clinically induration noted in the left submandibular area, no tenderness, some swelling noted. Still about the same per my exam. Patient denies any difficulty swallowing/difficulty breathing/pain. Called [facility], Patient accepted for transfer, accepting physician is Dr. Marilyn Fields. --> Pt being transferred there. Bilateral loculated pleural effusion Bilateral empyema Admitting CT chest with bilateral loculated pleural effusion right [4.5 cm] greater than left [3.7 cm] Patient saturating on room air, hemodynamically stable. Pulmonology consult. Appreciate recommendation. Status post bilateral pigtail catheter placement 04/30. Follow pleural fluid cultures. Continue with antibiotics [see above] Prediabetes: A1c of 5.7, repeat A1c in 3 months, encouraged lifestyle modification. Other chronic medical conditions: Continue with/resume home meds as and when able. HTN, BP on the lower side possible CHF as per patient, patient on the dry side PAF, patient NSR, patient not on anticoagulation anxiety/mood disorder, stable history of prolonged intubation GERD, stable on H2 beverly past tobacco abuse DVT prophylaxis. Lovenox subcu Full code Patient mother Ms. Deb Cerda, contact #[phone]. Patient is being transferred to [facility]. Home Health Attestation I certify that this patient is under my care and that I, or a physicians assistant finance manager working with me, had a face to-face encounter that meets the home health [id number] encounter requirements with this patient. The encounter with the patient was in whole, or in part, for the following medical condition, which is the primary reason for home health care (list medic al condition): I certify that, based on my findings, the following services are medically necessary home health services: My clinical findings support the need for the above services because: Further, I certify that my clinical findings support that this patient is homebound (i.e. absences from home require considerable and taxing effort and are for medical reasons or voodoo services or infrequently or of short duration when for other reasons) because: Certification for Home Health Services: Based on the above findings, I certify that this patient is confined to the home and needs intermittent alf care, physical therapy and/or speech therapy or continues to need occupational therapy. The patient is under my care, and I have initiated the establishment of the plan of care. This patient will be followed by a physician who will periodically review the plan of care. Total Time Total Time Spent Total Time Spent (In Minutes): 35 Discharge Plan Discharge Items Patient Disposition: Transfer Acute Care Hospital Reason For Visit: NECK SWELLING Discharge Diagnosis: Bilateral empyema Left submandibular cellulitis Condition on Discharge: Good Activity: As commented below Activity Comment: Per [facility] instruction. Non-emergency contact: Primary Care Provider Call non-emergency contact if: you have any medication questions, your symptoms worsen and your temperature is above 101 Follow-up/Referrals: PCP,NO [Primary Care Provider] - Diet: Heart Healthy Addtl Attending Provider Instructions: Your home medications are continued as prior in the med rec. These are your inpatient medications list copied and pasted here for the sake of comparison at [facility]. Current Inpatient Medications Acetaminophen (Acetaminophen 325 Mg Tab) 650 mg PO Q6H PRN PRN Reason: Fever/Pain Stop: 05/30/23 04:11 Amiodarone HCl (Amiodarone 200 Mg Tab) 200 mg PO DAILY RADHA Stop: 05/30/23 09:29 Last Admin: 05/01/23 08:58 Dose: 200 mg Aripiprazole (Aripiprazole 5 Mg Tab) 5 mg PO BID RADHA Stop: 05/30/23 08:59 Last Admin: 05/01/23 08:58 Dose: 5 mg Bisacodyl (Bisacodyl 10 Mg Supp) 10 mg OK DAILY PRN PRN Reason: Constipation Stop: 05/30/23 08:47 Diphenhydramine HCl (Diphenhydramine Hcl 25 Mg/10 Ml Udc) 12.5 mg PO Q8H PRN PRN Reason: allergic rxn/prior to vanc inf Stop: 05/30/23 12:29 Last Admin: 05/01/23 06:09 Dose: 12.5 mg Docusate Sodium (Docusate Sodium 100 Mg Cap) 100 mg PO BID RADHA Stop: 05/30/23 08:59 Last Admin: 05/01/23 08:59 Dose: Not Given Enoxaparin Sodium (Enoxaparin Inj 40 Mg/0.4 Ml Syr) 40 mg SQ QAM RADHA Stop: 05/30/23 08:59 Last Admin: 05/01/23 09:00 Dose: 40 mg Escitalopram Oxalate (Escitalopram Oxalate 10 Mg Tab) 10 mg PO DAILY RADHA Stop: 05/30/23 09:29 Last Admin: 05/01/23 08:58 Dose: 10 mg Famotidine (Famotidine 20 Mg Tab) 20 mg PO BID [facility] Stop: 05/30/23 08:59 Last Admin: 05/01/23 08:58 Dose: 20 mg Gabapentin (Gabapentin 100 Mg Cap) 100 mg PO BID [facility] Stop: 05/30/23 08:59 Last Admin: 05/01/23 08:59 Dose: Not Given Ertapenem 1,000 mg/ Syringe 10 mls @ 2 mls/min IV Q24H RADHA Stop: 05/07/23 08:59 Last Admin: 05/01/23 10:31 Dose: 2 mls/min Vancomycin HCl 1,500 mg/ (Sodium Chloride) 530 mls @ 150 mls/hr IV Q12H [facility] Stop: 05/07/23 11:59 Last Infusion: 05/01/23 10:26 Dose: Infused Alteplase, Recombinant 10 mg/ (Syringe) 60 mls @ 0 mls/hr IPL Q12H RADHA; Protocol Stop: 05/03/23 08:01 Last Admin: 05/01/23 08:32 Dose: 100 mls/hr Dornase Varun 5 ml/ Syringe 30 mls @ 0 mls/hr IPL Q12H RADHA; Protocol Stop: 05/03/23 09:01 Last Admin: 05/01/23 09:46 Dose: 100 mls/hr Alteplase, Recombinant 10 mg/ (Syringe) 60 mls @ 0 mls/hr IPL Q12H RADHA; Protocol Stop: 05/03/23 08:01 Last Admin: 05/01/23 08:33 Dose: 100 mls/hr Dornase Varun 5 ml/ Syringe 30 mls @ 0 mls/hr IPL Q12H RADHA; Protocol Stop: 05/03/23 09:01 Last Admin: 05/01/23 09:46 Dose: 100 mls/hr Lorazepam (Lorazepam 0.5 Mg Tab) 0.5 mg PO TID PRN PRN Reason: Anxiety Stop: 05/30/23 04:15 Miscellaneous Information (Vancomycin Consult Active) 1 each N/A UD PRN PRN Reason: Consult Stop: 05/29/23 22:05 Oxycodone HCl (Oxycodone Hcl Ir 5 Mg Tab (Immediate Release)) 5 mg PO Q4H PRN PRN Reason: Pain Stop: 05/14/23 04:11 Last Admin: 05/01/23 15:11 Dose: 5 mg Polyethylene Glycol (Polyethylene (Miralax) 17 Gm Pack) 17 gm PO DAILY PRN PRN Reason: Constipation Stop: 05/30/23 08:47 Tamsulosin HCl (Tamsulosin Hcl 0.4 Mg Cap) 0.4 mg PO DAILY RADHA Stop: 05/30/23 09:29 Last Admin: 05/01/23 08:58 Dose: 0.4 mg Pending Studies at Discharge: Yes Stand-Alone Forms: [facility] Skilled Items Patient informed of condition?: Yes DNR: No Discharge Level of Care: Other Communicable Disease: No Discharge Prognosis: Other Lines: Peripheral IV Urinary Catheter: No Medications and DC Order Prescriptions: Continued sennosides [Senokot] 8.6 mg Tablet 8.6 mg PO DAILY PRN (Reason: Constipation) Rx Instructions: QLUNCH PRN polyethylene glycol 3350 17 gram Powder In Packet 17 g PO DAILY PRN (Reason: Constipation) dextrose 40 % Gel 15 g PO DIRECTED PRN (Reason: Hypoglycemia) acetaminophen 650 mg Tablet 650 mg PO Q4H PRN (Reason: Pain) famotidine 20 mg Tablet 20 mg PO BID bisacodyl 10 mg Suppository 10 mg OK DAILY PRN (Reason: Constipation) Fleet Enema 19-7 gram/118 mL Enema 118 ml OK DAILY PRN (Reason: Constipation) docusate sodium 100 mg Capsule 100 mg PO BID gabapentin 100 mg Capsule 100 mg PO BID dextrose 50 % in water (D50W) Syringe 12.5 g IV DIRECTED PRN (Reason: Hypoglycemia) dextrose 50 % in water (D50W) Syringe 25 g IV DIRECTED PRN (Reason: Hypoglycemia) aripiprazole [Abilify] 5 mg Tablet 5 mg PO 2XD magnesium hydroxide [Milk Of Magnesia Concentrated] 2,400 mg/10 mL Suspension 2,400 mg PO DIRECTED MDD 2400 PRN (Reason: Constipation) Lovenox 40 mg SC BID Rx Instructions: dvt prophylaxis amiodarone 200 mg PO DAILY bumetanide 1 mg PO BID diltiazem HCl 90 mg PO QID escitalopram oxalate 10 mg PO DAILY tamsulosin 0.4 mg PO DAILY potassium chloride 20 meq PO TID Rx Instructions: ER tab Discharge Orders: Discharge Order (Routine); Ordered 05/02/23 Ordered By: Power Russ Admission Data Admit Date/Time: 04/30/23 04:01 Attending Provider: Power Russ Admit Provider: Efra Coley Primary Care Provider: PCP,NO Other Providers: Efra Coley ; Chandan Hawkins ; Ayan Caballero ; Ryne Ayala ; Chase Apple ; Aryan Alcala ; Lalita York ; Tiffany Stockton ; Saranya Leone ; Edward Singh ; Norman Pacheco ; Mitchell Chavez ; Safia Garcia ; Bruno Lewis I. ; Naldo Hudson II ; Tiffany Yousif ; Reji Orr ; Salvatore Puentes ; Narendra Greene Other Interventions: Discharge Summary Assessment (RN) Last Done: 05/02/23 08:14
== END 2023-05-02 09:11 | disposition short-term general hospital (02) | DRG 602 ==
LOC: ED 21:15 → 3N 04-30 04:01